=== PATIENT | male | born 1955 | race Caucasian/White ===

== ENCOUNTER 2020-01-08 14:03 | Outpatient (REF) | payer OTHER, SELFPAY ==
[2020-01-08 15:03] LABS: Abs Immature Grans 0.02 k/cumm (0.0-0.09); Absolute Basophil Count 0.01 k/cumm (0.0-0.2); Absolute Eosinophil Count 0.04 k/cumm (0.0-0.7); Absolute Lymphocyte Count 2.84 k/cumm (1.2-3.4); Absolute Neutrophil Count 2.52 k/cumm (1.2-6.7); Basophils % 0.2; Eosinophils % 0.6; HCT 42.2 % (40.0-50.0); HGB 14.7 g/dL (13.5-17.5); Immature Grans % 0.3 %; Lymphocytes % 44.9; Mean Corp. HGB Concentration 34.8 g/dL (32.0-36.0); Mean Corpuscular Hemoglobin 32.7 pg (27.0-33.0); Mean Corpuscular Volume 93.8 fL (80-95); Mean Platelet Volume 12.1 fL (8.0-11.0); Monocytes % 14.2; Neutrophils % 39.8; Platelet Count 127 x1000/uL (130-400); RBC Distribution Width 13.6 % (11.8-14.1); White Blood Cell Count 6.33 k/cumm (4.4-10.8)
[2020-01-08 15:24] LABS: Anion Gap 6.1 mmol/L (3-11); BUN 13 mg/dL (7-18); CO2 29.9 mmol/L (21.0-32.0); CREATININE 0.86 mg/dL (0.70-1.30); Calcium 9.5 mg/dL (8.5-10.1); Chloride 102 mmol/L (98-107); Glucose 77 mg/dL (74-106); Potassium 4.2 mmol/L (3.5-5.1); Sodium 138 mmol/L (136-145); TSH 0.76 uIU/mL (0.36-3.74)
== END 2020-01-08 14:23 ==
LOC: LBN 14:03
PROVIDERS: Visit Provider Internal Medicine
DX: I10 Essential (primary) hypertension (principal); J44.9 Chronic obstructive pulmonary disease, unspecified; E66.9 Obesity, unspecified
CPT/HCPCS: 80048; 84443; 85025

== ENCOUNTER 2020-03-20 10:34 | Emergency (ER) | payer OTHER, SELFPAY ==
[2020-03-20] VITALS (31 sets, daily range): BP systolic 100–158; BP diastolic 57–115; PULSE 74–126; RESP 15–28; TEMP 36.8; O2SAT 79–97
--- NOTE | 2020-03-20 10:15 | RT.EKG_ITS ---
APPROVED REPORT Exam: Resting ECG Patient Location: E HR:100 bpm ECG Measurements Heart Rate 100 AXIS WA 181 P 0 QRSd 107 QRS -9 QT 360 T 75 QTc 465 Conclusion Ventricular-paced complexes...other complexes also detected
[2020-03-20] MEDS: Normal Saline 1,000 ML 500 ML IV (10:45)
--- NOTE | 2020-03-20 10:45 | DI.RAD_ITS ---
EXAM: XR PORTABLE CHEST AP CLINICAL HISTORY: lightheaded, s/p pacemaker placement TECHNIQUE: 2D digital imaging was performed. COMPARISON: CR CHEST 2 VIEWS PA,LAT from 10/31/2017 FINDINGS: Exam is limited by poor pulmonary inflation and technique. Multiple leads are seen overlying the abundio st. The heart appears enlarged but is difficult to evaluate due to projection and poor inspiration. A pacemaker is now noted. There is no pneumothorax. There are linear areas of atelectasis bilatera lly. Basilar infiltrates cannot be excluded. No effusions are visible. IMPRESSION: Limited exam. Bibasilar atelectasis.
--- NOTE | 2020-03-20 10:45 | RT.EKG_ITS ---
APPROVED REPORT Exam: Resting ECG Patient Location: E HR:100 bpm ECG Measurements Heart Rate 100 AXIS MD 181 P 0 QRSd 107 QRS -9 QT 360 T 75 QTc 465 Conclusion Ventricular-paced complexes...other complexes also detected
--- NOTE | 2020-03-20 10:49 | W.ED.GENAD ---
Discharge Plan Disposition Patient Disposition: OTHER Condition: Stable Discharge Details Chief Complaint: Dizzy/Sync Clinical Impression: Dehydration, Near syncope Primary Care Provider: Kristen Lainez ED Provider: Luther Lafleur Home Meds and New Rx's Prescriptions: No Action lisinopril 40 MG tablet 80 mg PO DAILY RF: 0 albuterol sulfate [ProAir HFA] 8.5 GM HFA aerosol inhaler 1 inhaler Inhalation QID RF: 0 atorvastatin [Lipitor] 10 MG tablet 10 mg PO HS RF: 0 bisacodyl 5 MG tablet,delayed release (DR/EC) 5 mg PO HS RF: 0 ergocalciferol (vitamin D2) [Vitamin D2] 50,000 UNITS capsule 50,000 unit PO .WEEKLY RF: 0 ibuprofen 600 MG tablet 600 mg PO QID RF: 0 metoprolol tartrate 12.5 MG tablet 12.5 mg PO BID RF: 0 nicotine 21 mg/24 hr Patch 24 Hour 1 patch TRANSDERMAL DAILY RF: 0 haloperidol decanoate 50 mg/mL solution 100 mg IM Q24W RF: 0 Medical Decision Making 64-year-old male discharged from [facility] yesterday for pacemaker placement. States he arrived home and had an evening meal, slept through the night uneventfully and upon awakening felt lightheaded and dizzy it was worse with rising and better with seated position. Upon arrival he does have approximately 20 beat change to his heart rate with positioning from lying to flat. His blood pressures proxy 106/68 and he is afebrile. Differential diagnosis includes dehydration, anemia, must exclude displaced pacemaker lead. 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 Patient is not anemic with a white count of 9, hematocrit 46, platelets 115. Chemistries with BUN 34, creatinine 1.2, magnesium 1.7, troponin negative. In January renal function was BUN 13, creatinine 0.8. I working hypothesis is that the patient's tachydysrhythmia and subjective complaints of near syncope are due to dehydration, but unable to interrogate his new pacer. Does appear at times that he has ventricular pacing at higher rates around 100. I did perform a bedside [id number] ultrasound that does not show large pericardial effusion but is limited by the patient's body habitus. Case discussed with on-call physician at the [facility] Dr. Bear, who accepts the patient in transfer. HPI General Mode of arrival: EMS. Date/Time Provider Initiated Documentation: 03/20/20 10:38. Limitations to Documentation: no limitations. Information obtained by: patient and EMS. History of Present Illness 64 year old M presents to the emergency department with the chief complaint of Lightheaded and felt like going to pass out, described as moderate, and is localized to the head. Patient reports no radiation. Patient started experiencing this hour(s) and it has been intermittent. Rest improves symptom(s), Other factors that worsen symptoms (Upright) . Patient notes denies chest pain. Patient did receive the following treatments prior to arrival, none Related Data Home Medications Medication Instructions Recorded Confirmed lisinopril 80 mg PO DAILY 02/27/13 03/20/20 albuterol sulfate [ProAir HFA] 1 inhaler INHALATION QID 10/09/13 03/20/20 atorvastatin [Lipitor] 10 mg PO HS 09/21/17 03/20/20 bisacodyl 5 mg PO HS 09/21/17 03/20/20 ergocalciferol (vitamin D2) 50,000 unit PO .WEEKLY 09/21/17 03/20/20 [Vitamin D2] ibuprofen 600 mg PO QID 09/21/17 03/20/20 metoprolol tartrate 12.5 mg PO BID 09/21/17 03/20/20 haloperidol decanoate 100 mg IM Q24W 03/20/20 03/20/20 nicotine 1 patch TRANSDERMAL DAILY 03/20/20 03/20/20 Allergies Allergy/AdvReac Type Severity Reaction Status Date / Time codeine Allergy Itching Unverified 03/20/20 10:40 tramadol HCl [From Ultram] AdvReac Severe Agitation Unverified 03/20/20 10:40 General Stated Complaint: Dizzy/Sync RYLAN: 2 Review of Systems Narrative: No headache, no fall, no chest pain or palpitations. Did not pass out. Discharged from [facility] yesterday status post pacemaker placement. [facility] Social History Smoking/Tobacco Use Status: Current-Occasional Alcohol Intake: former Drug use: Daily Substance use type: marijuana Do you feel safe at home: Yes Do you feel safe in your relationship?: Yes Exam Narrative Exam Narrative: GEN: awake, alert, oriented 3. Pleasant, well groomed, interactive. HEAD: Normocephalic, atraumatic ENT: Mucous membranes dry, oropharynx unremarkable note of poor dentition, External ear exam unremarkable EYES: PERRL, EOMI NECK: Full ROM, no OSVALDO, no menigismus CHEST/RESP: Left upper chest pacemaker pocket dressed, slightly tender and slightly swollen on palpation, clear to auscultation bilateral, no wheeze/rhonchi/rales CARDIOVASCULAR: Distant, regular. 1+ Rad pulse bilateral ABDOMEN: Soft, nontender, no mass. +Bowel sounds EXT: Full ROM, trace pretibial edema, no rash Neuro: Grossly normal neurologic exam, conversant, interactive. Psych: Speech fluent, thoughts congruent, affect normal Course Vital Signs Vital signs: Vital Signs Temperature 36.8 C 03/20/20 10:31 Pulse 114 H 03/20/20 10:31 Respiratory Rate 15 03/20/20 10:31 Blood Pressure 106/68 03/20/20 10:31 Pulse Oximetry 90 L 03/20/20 10:31 Temperature 36.8 C 03/20/20 10:31 Temperature Source Skin 03/20/20 10:31 Pulse 114 H 03/20/20 10:31 Respiratory Rate 15 03/20/20 10:31 Blood Pressure 106/68 03/20/20 10:31 Blood Pressure Position Sitting 03/20/20 10:31 Pulse Oximetry 90 L 03/20/20 10:31 Oxygen Delivery Method Room Air 03/20/20 10:31 Oxygen Flow Rate 0 03/20/20 10:31 Pain Level 8 03/20/20 10:31 Comment 03/20/20 10:31
[2020-03-20 11:02] LABS: Abs Immature Grans 0.04 10^3/uL (0.0-0.06); Absolute Basophil Count 0.03 10^3/uL (0.0-0.2); Absolute Eosinophil Count 0.04 10^3/uL (0.0-0.7); Absolute Lymphocyte Count 1.79 10^3/uL (1.2-3.4); Absolute Monocyte Count 1.32 10^3/uL (0.1-0.8); Absolute Neutrophil Count 6.58 10^3/uL (1.2-6.7); Basophils % 0.3; Eosinophils % 0.4; HGB 15.8 g/dL (13.5-17.5); Immature Grans % 0.4; Lymphocytes % 18.3; MCH 32.4 pg (27.0-33.0); MCHC 34.3 % (32.0-36.0); MCV 94.5 fL (80-95); MPV 12.6 fL (8.0-11.0); Monocytes % 13.5; Neutrophils % 67.1; Nucleated RBC 0 %; Platelet Count 115 10^3/uL (130-400); RBC 4.87 10^6/uL (4.36-5.78); RDW 12.4 % (11.8-14.1); RDW-SD 43.1 fL
[2020-03-20 11:16] LABS: INR 1.1 (0.9-1.1); PTT Activated 26.1 sec (21.0-31.4); Prothrombin Time 10.9 sec (9.3-11.0)
[2020-03-20] MEDS: Nicotine 21 MG/24 HR PATCH TD (11:25)
[2020-03-20 11:26] LABS: ALT 21 U/L (16-63); AST 20 U/L (15-37); Albumin 3.9 g/dL (3.4-5.0); Alkaline Phosphatase 75 U/L (46-116); Anion Gap 10.4 mmol/L (3-11); BUN 34 mg/dL (7-18); Bilirubin, Total 1.1 mg/dL (0.2-1.0); CO2 23.6 mmol/L (21.0-32.0); CREATININE 1.22 mg/dL (0.70-1.30); Calcium 9.5 mg/dL (8.5-10.1); Chloride 102 mmol/L (98-107); Estimated GFR 59.99 (mL/min/1.73m2); Glucose 137 mg/dL (74-106); Magnesium 1.7 mg/dL (1.8-2.4); Potassium 4.7 mmol/L (3.5-5.1); Sodium 136 mmol/L (136-145); Total Protein 7.5 g/dL (6.4-8.2)
[2020-03-20 11:28] LABS: Troponin I < 0.05 ng/mL (<0.06)
[2020-03-20] MEDS: MAGNESIUM SULFATE 1 GM/100 ML BAG IVPB (11:41)
--- NOTE | 2020-03-20 11:43 | DI.VRAD_ITS ---
PROCEDURE INFORMATION: Exam: XR Chest, 1 View Exam date and time: 03/20/2020 10:49 AM Age: 64 years old Clinical indication: Other: Lightheaded S/P pacemaker; Prior surgery; Surgery date: Post-operative (0-2 days) TECHNIQUE: Imaging protocol: XR of the chest Views: 1 view. COMPARISON: CR CHEST 2 VIEWS PA,LAT 10/31/2017 9:01 AM FINDINGS: Tubes, catheters and devices: Cardiac device with the battery pack on the left is new. Lungs: Interstitial markings are more pronounced. I favor some scarring or atelectatic changes in the lung bases. No dense consolidation Pleural space: No effusion or pneumothorax. Heart/Mediastinum: Heart size is borderline. The mediastinum is not widened. Diaphragm: Eventration of the right hemidiaphragm. Bones/joints: Unremarkable. Other findings: Linear artifact over the left thorax. IMPRESSION: Borderline heart size with mildly prominent interstitial markings. Two-view chest follow-up is recommended. Dictated and Authenticated by: Jan Marx MD. Ordering:EMI Sloan MD
--- NOTE | 2020-03-20 12:30 | RT.EKG_ITS ---
APPROVED REPORT Exam: Resting ECG Patient Location: E HR:121 bpm ECG Measurements Heart Rate 121 AXIS IL [id number] P 87 QRSd 99 QRS -15 QT 355 T 77 QTc 505 Conclusion Ventricular-paced complexes...other complexes also detected Prolonged QT interval...QTc >500mS
== END 2020-03-20 13:34 | disposition other institution (70) ==
PROVIDERS: Emergency Provider Emergency Medicine; PCP Nurse Practitioner Primary Care
DX: E86.0 Dehydration (principal); R55 Syncope and collapse; Z95.0 Presence of cardiac pacemaker; Y83.1 Surgical operation with implant of artificial internal device as the cause of abnormal reaction of the patient, or of later complication, without mention of misadventure at the time of the procedure
CPT/HCPCS: 36415; 80053; 93005; 96361; 96365; 99285; 71045; 83735; 84484; 85025; 85610; 85730; 93010; J3475

== ENCOUNTER 2020-03-26 10:33 | Inpatient (IN) | payer OTHER, SELFPAY ==
[2020-03-26] VITALS (48 sets, daily range): BP systolic 88–122; BP diastolic 51–85; PULSE 52–67; RESP 6–33; TEMP 36–36.6; O2SAT 95–100
--- NOTE | 2020-03-26 10:30 | DI.RAD_ITS ---
EXAM: XR CHEST 1V IN DI DEPT CLINICAL HISTORY: slurred speech, stroke TECHNIQUE: 2D digital imaging was performed. COMPARISON: CR CHEST 2 VIEWS PA,LAT from 10/31/2017 CR,XR XR PORTABLE CHEST AP from 03/20/2020 FINDINGS: The lungs are poorly inflated. The heart is enlarged. The aorta is tortuous. A pacemaker is noted. There are linear densities bilaterally consistent with scarring and atelectasis. No areas consolid ation or pulmonary edema is seen. There is no evidence of pneumothorax.. IMPRESSION: No acute pulmonary findings. DATA REPOSITORY: RADIATION DOSE DELIVERED:
--- NOTE | 2020-03-26 10:45 | RT.EKG_ITS ---
APPROVED REPORT Exam: Resting ECG Patient Location: E HR:54 bpm ECG Measurements Heart Rate 54 AXIS PA 175 P 55 QRSd 122 QRS -9 QT 428 T 22 QTc 406 Conclusion Sinus bradycardia...rate< 60 Nonspecific intraventricular conduction delay...QRSd >115mS, not LBBB/RBBB Borderline ST elevation, lateral leads...ST >0.06mV, I aVL V5 V6 NO PACER SPIKES Nondiagnostic
--- NOTE | 2020-03-26 10:46 | DI.CT_ITS ---
EXAM: CT HEAD - STROKE PROTOCOL CLINICAL HISTORY: altered, slurred speech. TECHNIQUE: Imaging Protocol: Axial computed tomography images with coronal and sagittal reformatted images were created and reviewed COMPARISON: CT CHEST ABD PELVIS WITH CONTRAST from 02/28/2013 FINDINGS: Ventricles and Extra axial spaces: Normal in size and morphology for the patient's age. Hemorrhage: None. Cerebral parenchyma: Normal. Midline shift: None. Brainstem/Cerebellum: Normal. Calvarium: Normal. Visualized Paranasal sinuses/Mastoids: Small mucous retention cyst or polyp at the floor of the right maxillary sinus. Sinuses and mastoid air cells otherwise clear. Soft Tissues: Unremarkable. IMPRESSION: No acute intracranial process. RADIATION DOSE DELIVERED: 904.98mGy.cm Total DLP DATA REPOSITORY: All CT scans at this facility are submitted to the National Radiology Data Registry (NRDR) Dose Index Registry (DIR) with the [employer] (ACR). RADIATION OPTIMIZATION: All CT scans at this facility use at least one of these dose optimization te chniques: automated exposure control; mA and/or kV adjustment per patient size (includes targeted exa ms where dose is matched to clinical indication); or iterative reconstruction.
[2020-03-26] MEDS: Normal Saline Flush 10 ML SYR IVP ×2 (11:24→17:28)
--- NOTE | 2020-03-26 11:25 | ED.GENADUL_ITS ---
Discharge Plan Disposition Condition: Improving Discharge Details Chief Complaint: CVA/TIA Admit Date/Time: 03/26/20 15:11 Admit Provider: Jan Man Attending Provider: Jan Man Primary Care Provider: Kristen Lainez ED Provider: Darell Stephen Discharge Instructions Activity:: Activity as Tolerated Equipment/Supplies:: No Equipment Needed Diet:: heart healthy Discharge Orders Discharge Orders: Discharge Order (Routine); Ordered 03/29/20 Ordered By: Otilia Portillo Discharge Data Discharge Date/Time-TO BE ENTERED AT DEPARTURE: 03/26/20 16:09 Medical Decision Making 1135??64-year-old male who presents 1 week status post pacemaker placement, here with general fatigue, generalized weakness, slurred speech after taking his morning medications. No focal neurologic deficits appreciated on exam other than slurred speech and difficulty tracking on rightward gaze. Concern for CVA versus more likely medication reaction. CT of the head was interpreted by radiology: Negative. Plan to proceed to MRI. Screening ECG was reviewed and interpreted by me: Please see report, sinus bradycardia 54 bpm, I do not appreciate any pacer spikes, no STEMI 1208 --patient unable to have MRI secondary to pacemaker. Plan to proceed to CTA of the head and neck. Labs reviewed and urinalysis concerning for UTI, mild leukocytosis noted. Plan to start cefepime 1 g IV. Of note mild hyperkalemia with potassium is 5.5. Patient did not have peaked T's or bradycardia on 03/20. I will treat for cardiac effects of hyperkalemia with sodium bicarbonate and calcium gluconate and insulin/D50. Patient hypotensive. We will give normal saline 500 mL bolus. 1340 --CTA interpreted by radiology mild stenosis carotids, otherwise negative . Patient reassessed continues to have slurred speech and unchanged neurologic exam. Plan to admit for observation. HPI General Mode of arrival: ambulatory . Date/Time Provider Initiated Documentation: 03/26/20 10:33 . Limitations to Documentation: no limitations . Information obtained by: patient . HPI Narrative: 64-year-old male with history of hypertension, bipolar disorder, schizophrenia, anxiety disorder, recent pacemaker placement 1 week ago, here today by EMS with slurred speech and concern for CVA. Patient notes he woke up this morning and was feeling generally well he took his medications sometime around 7:30 in the morning and about 1/2-hour to an hour later he noticed that he felt generally weak, fatigued and then developed slurred speech. Patient denies any focal numbness or focal weakness but feels weak all over. He denies headache. No recent fever. Of note, patient did recently travel out of state to an area of high COVID-19 risk in [place] for his pacemaker placement. Related Data Home Medications Medication Instructions Recorded Confirmed atorvastatin [Lipitor] 10 mg PO HS 09/21/17 03/26/20 bisacodyl 5 mg PO HS 09/21/17 03/26/20 ibuprofen 600 mg PO QID 09/21/17 03/26/20 metoprolol tartrate 12.5 mg PO BID 09/21/17 03/26/20 nicotine 1 patch TRANSDERMAL DAILY 03/20/20 03/26/20 calcifediol 25 mcg PO DAILY 03/26/20 03/26/20 haloperidol decanoate 150 mg IM Q4W PRN 03/26/20 03/26/20 pregabalin [Lyrica] 200 mg PO BID 03/26/20 03/26/20 tamsulosin 0.8 mg PO DAILY 03/26/20 03/26/20 acetaminophen [Tylenol] 650 mg PO Q4H PRN PRN #0 tab 03/29/20 levofloxacin [Levaquin] 750 mg PO QAM #2 tab 03/29/20 lisinopril 40 mg PO DAILY #0 tab 03/29/20 03/26/20 Previous Rx's Medication Instructions Recorded acetaminophen [Tylenol] 650 mg PO Q4H PRN PRN #0 tab 03/29/20 levofloxacin [Levaquin] 750 mg PO QAM #2 tab 03/29/20 lisinopril 40 mg PO DAILY #0 tab 03/29/20 Allergies Allergy/AdvReac Type Severity Reaction Status Date / Time cefepime Allergy Mild Urticaria Verified 03/27/20 10:24 ceftriaxone Allergy Mild urticaria Verified 03/27/20 10:24 codeine Allergy Itching Unverified 03/26/20 14:41 tramadol HCl [From Ultram] AdvReac Severe Agitation Unverified 03/26/20 14:41 General Stated Complaint: CVA/TIA RYLAN: 2 Review of Systems All systems reviewed & are unremarkable except as noted in HPI and below Constitutional Constitutional: Denies fever(s) Cardiovascular Cardiovascular: Denies chest pain and Denies dyspnea Respiratory Respiratory: Denies dyspnea Gastrointestinal Gastrointestinal: Denies abdominal pain Neurologic Neurologic: Reports as per HPI [facility] Medical History Bipolar 1 disorder (Chronic) Near syncope (Acute) Pacemaker (Acute) Pneumonitis (Acute) Schizophrenia (Chronic) UTI (urinary tract infection) (Acute) Social History Smoking/Tobacco Use Status: Current-Occasional Alcohol Intake: former Drug use: Daily Substance use type: marijuana Do you feel safe at home: Yes Do you feel safe in your relationship?: Yes Exam Const General: cooperative and no acute distress HENMT Head: normocephalic and atraumatic Mouth: moist mucous membranes Eyes Conjunctivae: normal conjunctivae Sclera: normal sclerae Other: Difficulty with rightward gaze Neck Neck: trachea midline and supple Resp Auscultation: clear to auscultation bilaterally, no rales, no rhonchi and no wheezes Cardio Jugular venous pressure: no JVD Rate: regular rate and not tachycardic Rhythm: regular rhythm GI Palpation: soft, not firm, no guarding, no masses, not rigid and nontender Skin General skin exam: no rashes or lesions noted Neuro General: patient alert, patient awake, patient oriented x3 and tone normal Cranial Nerves: PERRL, accommodation abnormal (Right eye does not accommodate well), facial strength normal, tongue midline and able to elevate shoulders jung aterally Cognition: normal cognition Speech: abnormal speech slurred Motor: other (Strength 4 out of 5 throughout) Sensory Exam: no sensory deficits noted Extrem General: no edema Psych Appearance: grossly normal Mental Status: mental status grossly normal Course Vital Signs Vital signs: Vital Signs Temperature 36.0 C L 03/26/20 10:33 Pulse 59 L 03/26/20 10:33 Respiratory Rate 26 H 03/26/20 10:33 Blood Pressure 108/67 03/26/20 10:33 Pulse Oximetry 98 03/26/20 10:33 Temperature 36.0 C L 03/26/20 10:33 Temperature Source Skin 03/26/20 10:33 Pulse 59 L 03/26/20 10:33 Respiratory Rate 26 H 03/26/20 10:33 Blood Pressure 108/67 03/26/20 10:33 Pulse Oximetry 98 03/26/20 10:33 Oxygen Delivery Method Nasal Cannula 03/26/20 10:33 Oxygen Flow Rate 4 03/26/20 10:33 Pain Level 8 03/26/20 10:33 Comment 03/26/20 10:33
[2020-03-26 11:29] LABS: Abs Immature Grans 0.05 10^3/uL (0.0-0.06); Absolute Neutrophil Count 8.59 10^3/uL (1.2-6.7); Basophils % 0.3; Eosinophils % 0.3; HCT 43.3 % (40.0-50.0); HGB 14.9 g/dL (13.5-17.5); Immature Grans % 0.4; Lymphocytes % 12.7; MCH 32.4 pg (27.0-33.0); MCHC 34.4 % (32.0-36.0); MCV 94.1 fL (80-95); Monocytes % 12.8; Neutrophils % 73.5; Nucleated RBC 0 %; Platelet Count 110 10^3/uL (130-400); RDW 12.1 % (11.8-14.1); WBC 11.69 10^3/uL (4.4-10.8)
[2020-03-26 11:38] LABS: Bilirubin Negative (Negative); Blood Trace-intact (Negative); Clarity Sl Cloudy (Clear); Glucose Negative (Negative); Ketones Negative (Negative); Leukocyte Esterase Moderate (Negative); Nitrite Positive (Negative)
[2020-03-26 11:38] LABS: Absolute Basophil Count 0.04 10^3/uL (0.0-0.2); Absolute Eosinophil Count 0.04 10^3/uL (0.0-0.7); Absolute Lymphocyte Count 1.48 10^3/uL (1.2-3.4)
[2020-03-26 11:49] LABS: ALT 29 U/L (16-63); AST 23 U/L (15-37); Alkaline Phosphatase 83 U/L (46-116); Anion Gap 8.7 mmol/L (3-11); BUN 40 mg/dL (7-18); Bilirubin, Total 0.9 mg/dL (0.2-1.0); CO2 26.3 mmol/L (21.0-32.0); CREATININE 1.09 mg/dL (0.70-1.30); Calcium 9.7 mg/dL (8.5-10.1); Chloride 98 mmol/L (98-107); Glucose 108 mg/dL (74-106); Potassium 5.5 mmol/L (3.5-5.1); Sodium 133 mmol/L (136-145); Total Protein 7.3 g/dL (6.4-8.2)
[2020-03-26 11:50] LABS: Troponin I < 0.05 ng/mL (<0.06)
[2020-03-26 11:58] LABS: Bacteria Many HPF (Negative); C & S Indicated? Yes; Casts 0-2 Coarse Granular LPF (Negative); Crystals Negative HPF (Negative); Epithelial Cells Negative HPF (Negative); Mucus Negative (Negative); Other Cells Rare Renal (Negative); RBC 20-50 HPF (0-2); WBC >50 HPF (0-5)
--- NOTE | 2020-03-26 12:00 | DI.CT_ITS ---
EXAM: CT BRAIN NECK CTA CLINICAL HISTORY: slurred speech. TECHNIQUE: Imaging Protocol: Axial CT angiography was performed with multi-slice acquisition and mu lti-planar and/or 3D reconstructions. CONTRAST MATERIAL: Intravenous: Omnipaque 350 Contrast volume:100 cc COMPARISON: CT CHEST ABD PELVIS WITH CONTRAST from 06/03/2015 FINDINGS: CTA Brain W: Internal Carotid Arteries: Petrous: Normal. Cavernous: Normal. Cerebral: Normal. Middle Cerebral Arteries: Right: No aneurysm, occlusion or significant stenosis. Left: No aneurysm, occlusion or significant stenosis. Anterior Cerebral Arteries: Right: No aneurysm, occlusion or significant stenosis. Left: No aneurysm, occlusion or significant stenosis. Posterior cerebral Arteries: Right: No aneurysm, occlusion or significant stenosis. Left: No aneurysm, occlusion or significant stenosis. Vertebral Arteries: Right: No aneurysm, occlusion or significant stenosis. Left: No aneurysm, occlusion or significant stenosis. Basilar Artery: No aneurysm, occlusion or significant stenosis. CTA Neck W: Common Carotid: Right: No aneurysm, occlusion or significant stenosis. Proximal tortuosity.No evidence of dissection . Left: No aneurysm, occlusion or significant stenosis. No evidence of dissection. Calcific plaque at both common carotid bulbs. External Carotid: Right: No aneurysm, occlusion or significant stenosis. Left: No aneurysm, occlusion or significant stenosis. Internal Carotid: Right: No aneurysm, occlusion or significant stenosis. No evidence of dissection.Calcific plaque cau sing mild stenosis. Left: No aneurysm, occlusion or significant stenosis. Calcific plaque causing mild stenosis.No evide nce of dissection. Vertebral Artery: Right: No aneurysm, occlusion or significant stenosis. No evidence of dissection. Left: No aneurysm, occlusion or significant stenosis. No evidence of dissection. Lung Apices: Emphysematous changes. Bones: Degenerative changes in the spine Soft Tissues: Normal. IMPRESSION: 1. Normal CTA examination of the [place]. 2. Calcific plaque in the common carotid bulbs and proximal internal carotid arteries cause mild, les s than 50 percent stenosis. RADIATION DOSE DELIVERED: 350.07mGy.cm Total DLP DATA REPOSITORY: All CT scans at this facility are submitted to the National Radiology Data Registry (NRDR) Dose Index Registry (DIR) with the [employer] (ACR). RADIATION OPTIMIZATION: All CT scans at this facility use at least one of these dose optimization te chniques: automated exposure control; mA and/or kV adjustment per patient size (includes targeted exa ms where dose is matched to clinical indication); or iterative reconstruction.
[2020-03-26] MEDS: Normal Saline 500 ML IV (12:05)
[2020-03-26] MEDS: Sodium Bicarbonate 50 MEQ/50 ML SYR IVP (12:45)
[2020-03-26] MEDS: Dextrose 50%-Water 25 GM/50 ML SYR IVP (12:48)
[2020-03-26] MEDS: Insulin REGULAR-Human 100 UNITS/ML UNIT 10 UNITS SC (12:51)
[2020-03-26] MEDS: Normal Saline - Diluent 50 ML VIAL IV (13:07)
[2020-03-26] MEDS: Omnipaque 350 MG/ML 100 ML BTL IJ (13:07)
--- NOTE | 2020-03-26 13:30 | RT.EKG_ITS ---
APPROVED REPORT Exam: Resting ECG Patient Location: E HR:65 bpm ECG Measurements Heart Rate 65 AXIS MI 184 P 57 QRSd 127 QRS -7 QT 424 T 28 QTc 441 Conclusion Sinus rhythm...normal P axis, V-rate 60- 99 Nonspecific intraventricular conduction delay...QRSd >115mS, not LBBB/RBBB
[2020-03-26] MEDS: CEFEPIME 1 GM in Normal Saline 50 ML IVPB (13:36)
[2020-03-26 14:25] LABS: Troponin I < 0.05 ng/mL (<0.06)
--- NOTE | 2020-03-26 15:17 | HPE_ITS ---
Date of service: 03/26/20 Time of Service: 15:18 Assessment and Plan Assessment and plan (1) Hyperkalemia: Status: Acute Assessment and plan: Repeat BMP now. (2) UTI (urinary tract infection): Status: Acute Assessment and plan: No previous UTI Single dose of cefepime given in ED Begin Rocephin 1 gram Q24H Cx in progress. (3) Bipolar 1 disorder: Status: Acute Assessment and plan: Behavior normal No current psych meds other than depo haldol Q4W (4) Schizophrenia: Status: Chronic Assessment and plan: Haloperidol deconoate 150mg IM Q4W. (5) Slurred speech: Status: Acute Assessment and plan: Normal head CT and CTA head/neck Unclear of baseline speech pattern. Monitor for other clinical signs of neurologic impairment. History of Present Illness History of Present Illness Chief Complaint: slurred speech and generalize weakness Narrative: This is a 64 yo male with a h/o HTN, anxiety disorder, schizophrenia, bipolar disorder, 1 week s/p pacemaker. He presented with generalized fatigue and weakness as well as slurred speech after taking his morning meds. CT head was negative for acute findings. MRI could not be performed d/t presence of his pacemaker. CTA head/neck with normal [place]. Mild, less than 50% stenosis d/t plaque in the common carotid bulbs and proximal internal carotid arteries. His K was elevated at 5.5; this was addressed with sodium bicarbonate, calcium gluconate and insulin and D50. He did have peaked T-waves that were not seen on previous EKG. No pacer spikes were appreciated. + sinus bradycardia of 54. His SBP did decrease into the 80's and a 500ml bolus of NS was administered. His SBP improved to the 110's. His bradycardia resolved. His urine was positive and a dose of Cefepime was given. He endorses chronic hip/groin pain. No dysuria, frequency,h/o UTIs. Uses a condom catheter d/t urinary incontinence. No recent indwelling awad catheter. No CP, palpitations. Review of Systems All systems reviewed & are unremarkable except as noted in HPI and below PFSH Medical History Pacemaker (Acute) Social History Smoking/Tobacco Use Status: Current-Occasional Alcohol Intake: former Drug use: Daily Substance use type: marijuana Do you feel safe at home: Yes Do you feel safe in your relationship?: Yes Meds Home Medications and Allergies Home Medications Medication Instructions Recorded Confirmed Type lisinopril 80 mg PO DAILY 02/27/13 03/26/20 History atorvastatin [Lipitor] 10 mg PO HS 09/21/17 03/26/20 History bisacodyl 5 mg PO HS 09/21/17 03/26/20 History ibuprofen 600 mg PO QID 09/21/17 03/26/20 History metoprolol tartrate 12.5 mg PO BID 09/21/17 03/26/20 History nicotine 1 patch TRANSDERMAL DAILY 03/20/20 03/26/20 History calcifediol 25 mcg PO DAILY 03/26/20 03/26/20 History haloperidol decanoate 150 mg IM Q4W PRN 03/26/20 03/26/20 History pregabalin [Lyrica] 200 mg PO BID 03/26/20 03/26/20 History tamsulosin 0.8 mg PO DAILY 03/26/20 03/26/20 History Allergies Allergy/AdvReac Type Severity Reaction Status Date / Time codeine Allergy Itching Unverified 03/26/20 14:41 tramadol HCl [From Ultram] AdvReac Severe Agitation Unverified 03/26/20 14:41 Exam Const General: cooperative and no acute distress Nutritional Appearance: obese Orientation: alert and oriented x3 HENMT Head: normal to inspection and atraumatic Eyes General: appearance normal, both eyes and all related structures Sclera: sclerae normal Neck Neck: full ROM and no JVD Resp Effort & Inspection: normal respiratory effort Auscultation: clear to auscultation bilaterally Cardio Rate: regular rate (60) Rhythm: regular rhythm Heart Sounds: S1 normal and S2 normal GI Inspection: obesity Palpation: soft Percussion: normal to percussion Auscultation: normal bowel sounds Skin General skin exam: no rashes or lesions noted Trauma: no lacerations or abrasions Extrem General: no pedal edema and no calf tenderness Psych Appearance: grossly normal Speech and Movement: slurred speech (mild) Mood: congruent mood Affect: normal affect Attitude: cooperative Thought Content: normal Results Labs Result diagrams: 03/26/20 11:15 03/26/20 11:15 Labs: Laboratory Results - last 24 hr 03/26/20 03/26/20 03/26/20 11:15 11:15 11:30 WBC 11.69 H RBC 4.60 Hgb 14.9 Hct 43.3 MCV 94.1 MCH 32.4 MCHC 34.4 RDW 12.1 Plt Count 110 L MPV 13.0 H Immature Gran % 0.4 Neutrophils % 73.5 Lymphocytes % 12.7 Monocytes % 12.8 Eosinophils % 0.3 Basophils % 0.3 Nucleated RBC % 0 Absolute Neutrophils 8.59 H Absolute Lymphocytes 1.48 Absolute Monocytes 1.50 H Absolute Eosinophils 0.04 Absolute Basophils 0.04 Sodium 133 L Potassium 5.5 H Chloride 98 Carbon Dioxide 26.3 Anion Gap 8.7 BUN 40 H Creatinine 1.09 Estimated GFR/1.73 m2 >= 60.00 Glucose 108 H Calcium 9.7 Total Bilirubin 0.9 AST 23 ALT 29 Alkaline Phosphatase 83 Troponin I < 0.05 Total Protein 7.3 Albumin 4.0 Urine Color Yellow Urine Clarity Sl cloudy Urine pH 6.0 Ur Specific [place] 1.020 Urine Protein Negative Urine Ketones Negative Urine Blood Trace-intact H Urine Nitrite Positive H Urine Bilirubin Negative Urine Urobilinogen 1.0 H Ur Leukocyte Esterase Moderate H Urine RBC 20-50 H Urine WBC >50 H Ur Epithelial Cells Negative Urine Crystals Negative Urine Bacteria Many Urine Casts 0-2 coarse granular Urine Mucus Negative Urine Other Rare renal Ur Culture Indicated? Yes Urine Glucose Negative 03/26/20 13:53 WBC RBC Hgb Hct MCV MCH MCHC RDW Plt Count MPV Immature Gran % Neutrophils % Lymphocytes % Monocytes % Eosinophils % Basophils % Nucleated RBC % Absolute Neutrophils Absolute Lymphocytes Absolute Monocytes Absolute Eosinophils Absolute Basophils Sodium Potassium Chloride Carbon Dioxide Anion Gap BUN Creatinine Estimated GFR/1.73 m2 Glucose Calcium Total Bilirubin AST ALT Alkaline Phosphatase Troponin I < 0.05 Total Protein Albumin Urine Color Urine Clarity Urine pH Ur Specific [place] Urine Protein Urine Ketones Urine Blood Urine Nitrite Urine Bilirubin Urine Urobilinogen Ur Leukocyte Esterase Urine RBC Urine WBC Ur Epithelial Cells Urine Crystals Urine Bacteria Urine Casts Urine Mucus Urine Other Ur Culture Indicated? Urine Glucose Last Vital Signs Temp 36.0 C L 03/26/20 10:33 Pulse 62 03/26/20 14:16 Resp 17 03/26/20 14:20 BP 109/72 03/26/20 14:16 Pulse Ox 97 03/26/20 14:20 COVID-19 Screening Have you,or household,traveled outside [place] in last 14 days?: Yes Had IN PERSON contact w/suspected or confirmed C-19 person: No
[2020-03-26] MEDS: Normal Saline 1,000 ML 80 ML IV (17:00)
[2020-03-26] MEDS: Enoxaparin 40 MG/0.4 ML SYR SC (17:28)
[2020-03-26 17:42] LABS: Anion Gap 5.1 mmol/L (3-11); CO2 30.9 mmol/L (21.0-32.0); CREATININE 0.89 mg/dL (0.70-1.30); Calcium 9.2 mg/dL (8.5-10.1); Chloride 102 mmol/L (98-107); Glucose 82 mg/dL (74-106); Potassium 4.6 mmol/L (3.5-5.1); Sodium 138 mmol/L (136-145)
[2020-03-26 17:52] LABS: BUN 30 mg/dL (7-18)
[2020-03-26] MEDS: Nicotine 21 MG/24 HR PATCH TD (18:28)
[2020-03-26] MEDS: Pregabalin 100 MG CAP 200 MG PO (20:44)
[2020-03-26] MEDS: cefTRIAXone 1 GM/50 ML BAG IVPB (20:47)
[2020-03-26] MEDS: Bisacodyl 5 MG TABEC PO (21:33)
[2020-03-26] MEDS: Magnesium Oxide 400 MG TAB PO (21:33)
[2020-03-26] MEDS: Atorvastatin 10 MG TAB PO (21:35)
[2020-03-27 05:00] VITALS: BP 135/73; PULSE 60; RESP 16; TEMP 37.2; O2SAT 92
[2020-03-27] MEDS: Normal Saline 1,000 ML 80 ML IV ×2 (06:02→18:18)
[2020-03-27] MEDS: Acetaminophen 325 MG TAB 650 MG PO ×2 (08:00→18:10)
[2020-03-27] MEDS: Tamsulosin 0.4 MG CAPCR 0.8 MG PO (08:00)
[2020-03-27] MEDS: Cholecalciferol (Vitamin D3) 1,000 UNIT TAB 1000 UNITS PO (08:01)
[2020-03-27] MEDS: Pregabalin 100 MG CAP 200 MG PO ×2 (08:01→20:32)
[2020-03-27] MEDS: Nicotine 21 MG/24 HR PATCH TD (08:02)
[2020-03-27 08:10] VITALS: BP 131/73; PULSE 57; RESP 17; TEMP 35.7; O2SAT 95
[2020-03-27 08:45] LABS: Anion Gap 6.6 mmol/L (3-11); BUN 21 mg/dL (7-18); CO2 28.4 mmol/L (21.0-32.0); CREATININE 0.75 mg/dL (0.70-1.30); Calcium 9.3 mg/dL (8.5-10.1); Chloride 102 mmol/L (98-107); Glucose 122 mg/dL (74-106); Magnesium 1.7 mg/dL (1.8-2.4); Potassium 4.5 mmol/L (3.5-5.1); Sodium 137 mmol/L (136-145)
[2020-03-27 08:48] LABS: Abs Immature Grans 0.04 10^3/uL (0.0-0.06); Absolute Basophil Count 0.02 10^3/uL (0.0-0.2); Absolute Eosinophil Count 0.03 10^3/uL (0.0-0.7); Absolute Lymphocyte Count 1.72 10^3/uL (1.2-3.4); Absolute Monocyte Count 1.28 10^3/uL (0.1-0.8); Absolute Neutrophil Count 7.17 10^3/uL (1.2-6.7); Basophils % 0.2; Eosinophils % 0.3; HCT 42.4 % (40.0-50.0); HGB 14.2 g/dL (13.5-17.5); Immature Grans % 0.4; Lymphocytes % 16.8; MCH 31.7 pg (27.0-33.0); MCHC 33.5 % (32.0-36.0); MCV 94.6 fL (80-95); Monocytes % 12.5; Neutrophils % 69.8; Nucleated RBC 0 %; Platelet Count 117 10^3/uL (130-400); RBC 4.48 10^6/uL (4.36-5.78); RDW-SD 42.1 fL; WBC 10.26 10^3/uL (4.4-10.8)
[2020-03-27 09:12] LABS: Hemoglobin A1C 6.1 % (3.8-5.6)
[2020-03-27 09:15] LABS: Calculated LDL 54 mg/dL (<100); Cholesterol 94 mg/dL (<200); HDL Cholesterol 23 mg/dL (40-60); Triglyceride 89 mg/dL (<150)
[2020-03-27] MEDS: diphenhydrAMINE 50 MG/ML VIAL IVP (09:42)
[2020-03-27] MEDS: Normal Saline Flush 10 ML SYR IVP (09:43)
[2020-03-27] MEDS: Famotidine 20 MG/2 ML VIAL IV (09:43)
--- NOTE | 2020-03-27 10:23 | PGE_ITS ---
Date of Service Date of service: 03/27/20 Time of Service: 10:23 Assessment and Plan Assessment and plan (1) Hyperkalemia: Start date: 03/27/20 Start time: 10:28 Status: Resolved Assessment and plan: Potassium level 4.5 (2) UTI (urinary tract infection): Start date: 03/27/20 Start time: 10:30 Status: Acute Assessment and plan: No previous UTI He did appear to have a drug reaction unsure to whether cefepime or ceftriaxone so will add both to allergy list Switch to levaquin urine cx pending, await senstitivities. Given benadryl and pepcid IV. (3) Bipolar 1 disorder: Start date: 03/27/20 Start time: 10:33 Status: Chronic Assessment and plan: Behavior normal No current psych meds other than depo haldol Q4W (4) Schizophrenia: Start date: 03/27/20 Start time: 10:34 Status: Chronic Assessment and plan: Haloperidol deconoate 150mg IM Q4W. Qualifiers: Schizophrenia type: unspecified Qualified Code(s): F20.9 - Schizophrenia, unspecified (5) Slurred speech: Start date: 03/27/20 Start time: 10:34 Status: Acute Assessment and plan: Normal head CT and CTA head/neck Unclear of baseline speech pattern. Monitor for other clinical signs of neurologic impairment. (6) Hypomagnesemia: Start date: 03/27/20 Start time: 10:34 Status: Acute Assessment and plan: Replete mag and monitor. (7) Pacemaker: Start date: 03/27/20 Start time: 10:34 Status: Acute Assessment and plan: S/p 7 days, given weakness and fatigue, will place cardiology consult for pacemaker interrogation. (8) Dehydration: Start date: 03/27/20 Start time: 10:35 Status: Acute Assessment and plan: Improving, continue IV hydration Above case discussed with Dr. Ramirez. Subjective Subjective Patient reports: other Interval history since last seen: Urticaria to bilateral lower extremities, denies SOB, throat swelling, tongue swelling, likely a drug reaction from cefepime or ceftriaxone, unsure which one as he received both, therefore will add both to allergy list. Switch to PO levaquin for UTI coverage. Benadyrl and pepcid IV given for reaction will monitor. Otherwise he states feeling better. Exam Const General: cooperative and no acute distress Nutritional Appearance: obese Orientation: alert and oriented x3 HENMT Head: normal to inspection and atraumatic Eyes General: appearance normal, both eyes and all related structures Sclera: sclerae normal Neck Neck: full ROM and no JVD Resp Effort & Inspection: normal respiratory effort Auscultation: clear to auscultation bilaterally Cardio Rate: regular rate (60) Rhythm: regular rhythm Heart Sounds: S1 normal and S2 normal GI Inspection: obesity Palpation: soft Percussion: normal to percussion Auscultation: normal bowel sounds Skin Rashes: rashes noted (bilateral knees. ) Wounds: no wounds Extrem General: no pedal edema and no calf tenderness Psych Appearance: grossly normal Speech and Movement: slurred speech (mild) Mood: congruent mood Affect: normal affect Attitude: cooperative Thought Content: normal Objective Objective Clinical Data: Abnormal lab results 03/26/20 03/26/20 03/26/20 Range/Units 11:15 11:15 11:30 WBC 11.69 H (4.4-10.8) 10^3/uL Plt Count 110 L (130-400) 10^3/uL MPV 13.0 H (8.0-11.0) fL Absolute Neutrophils 8.59 H (1.2-6.7) 10^3/uL Absolute Monocytes 1.50 H (0.1-0.8) 10^3/uL Sodium 133 L (136-145) mmol/L Potassium 5.5 H (3.5-5.1) mmol/L BUN 40 H (7-18) mg/dL Glucose 108 H (74-106) mg/dL Hemoglobin A1c (3.8-5.6) % Magnesium (1.8-2.4) mg/dL HDL Cholesterol (40-60) mg/dL Urine Blood Trace-intact H (Negative) Urine Nitrite Positive H (Negative) Urine Urobilinogen 1.0 H (Up TO 0.2) EU/dL Ur Leukocyte Esterase Moderate H (Negative) Urine RBC 20-50 H (0-2) HPF Urine WBC >50 H (0-5) HPF 03/26/20 03/27/20 03/27/20 Range/Units 17:28 08:26 08:26 WBC (4.4-10.8) 10^3/uL Plt Count 117 L (130-400) 10^3/uL MPV 13.0 H (8.0-11.0) fL Absolute Neutrophils 7.17 H (1.2-6.7) 10^3/uL Absolute Monocytes 1.28 H (0.1-0.8) 10^3/uL Sodium (136-145) mmol/L Potassium (3.5-5.1) mmol/L BUN 30 H D 21 H D (7-18) mg/dL Glucose 122 H (74-106) mg/dL Hemoglobin A1c (3.8-5.6) % Magnesium 1.7 L (1.8-2.4) mg/dL HDL Cholesterol 23 L (40-60) mg/dL Urine Blood (Negative) Urine Nitrite (Negative) Urine Urobilinogen (Up TO 0.2) EU/dL Ur Leukocyte Esterase (Negative) Urine RBC (0-2) HPF Urine WBC (0-5) HPF 03/27/20 Range/Units 08:26 WBC (4.4-10.8) 10^3/uL Plt Count (130-400) 10^3/uL MPV (8.0-11.0) fL Absolute Neutrophils (1.2-6.7) 10^3/uL Absolute Monocytes (0.1-0.8) 10^3/uL Sodium (136-145) mmol/L Potassium (3.5-5.1) mmol/L BUN (7-18) mg/dL Glucose (74-106) mg/dL Hemoglobin A1c 6.1 H (3.8-5.6) % Magnesium (1.8-2.4) mg/dL HDL Cholesterol (40-60) mg/dL Urine Blood (Negative) Urine Nitrite (Negative) Urine Urobilinogen (Up TO 0.2) EU/dL Ur Leukocyte Esterase (Negative) Urine RBC (0-2) HPF Urine WBC (0-5) HPF Vital Signs Temperature 35.7 C L 03/27/20 08:10 Temperature Source Tympanic 03/27/20 08:10 Pulse 57 L 03/27/20 08:10 Pulse Rhythm Regular 03/27/20 02:03 Pulse 57 L 03/26/20 15:20 Respiratory Rate 17 03/27/20 08:10 Respiratory Effort 03/27/20 02:03 Respiratory Depth Normal 03/27/20 02:03 Respiratory Pattern Normal 03/27/20 02:03 Blood Pressure 131/73 03/27/20 08:10 Blood Pressure Mean 78 03/26/20 15:16 Pulse Oximetry 95 03/27/20 08:10 Oxygen Delivery Method Nasal Cannula 03/27/20 08:10 Oxygen Flow Rate 4 03/27/20 08:10 Pain Level 8 03/27/20 08:10 Comment chronic O2 user at home - 4 liters 03/26/20 10:33 Intake & Output 03/26/20 03/26/20 03/27/20 11:59 23:59 11:59 Intake Total 610 / 610 1000 / 1000 Output Total 200 / 1775 1575 / 1775 1600 / 1600 Balance -200 / -1165 -965 / -1165 -600 / -600 Weight 111.13 kg 111.13 kg Intake: IV 610 / 610 1000 / 1000 Output: Urine 200 / 1775 1575 / 1775 1600 / 1600 Other: Urine Color Yellow Dark Taryn Urine Appearance Clear Clear Urine Odor Normal Voiding Methods Urinal Laboratory Results WBC 10.26 10^3/uL (4.4-10.8) 03/27/20 08:26 RBC 4.48 10^6/uL (4.36-5.78) 03/27/20 08:26 Hgb 14.2 g/dL (13.5-17.5) 03/27/20 08:26 Hct 42.4 % (40.0-50.0) 03/27/20 08:26 MCV 94.6 fL (80-95) 03/27/20 08:26 MCH 31.7 pg (27.0-33.0) 03/27/20 08:26 MCHC 33.5 % (32.0-36.0) 03/27/20 08:26 RDW 12.0 % (11.8-14.1) 03/27/20 08:26 Plt Count 117 10^3/uL (130-400) L 03/27/20 08:26 MPV 13.0 fL (8.0-11.0) H 03/27/20 08:26 Immature Gran % 0.4 03/27/20 08:26 Neutrophils % 69.8 03/27/20 08:26 Lymphocytes % 16.8 03/27/20 08:26 Monocytes % 12.5 03/27/20 08:26 Eosinophils % 0.3 03/27/20 08: Basophils % 0.2 03/27/20 08:26 Nucleated RBC % 0 % 03/27/20 08:26 Absolute Neutrophils 7.17 10^3/uL (1.2-6.7) H 03/27/20 08:26 Absolute Lymphocytes 1.72 10^3/uL (1.2-3.4) 03/27/20 08: Absolute Monocytes 1.28 10^3/uL (0.1-0.8) H 03/27/20 08: Absolute Eosinophils 0.03 10^3/uL (0.0-0.7) 03/27/20 08: Absolute Basophils 0.02 10^3/uL (0.0-0.2) 03/27/20 08:26 Sodium 137 mmol/L (136-145) 03/27/20 08:26 Potassium 4.5 mmol/L (3.5-5.1) 03/27/20 08:26 Chloride 102 mmol/L (98-107) 03/27/20 08:26 Carbon Dioxide 28.4 mmol/L (21.0-32.0) 03/27/20 08:26 Anion Gap 6.6 mmol/L (3-11) 03/27/20 08:26 BUN 21 mg/dL (7-18) H D 03/27/20 08:26 Creatinine 0.75 mg/dL (0.70-1.30) 03/27/20 08:26 Estimated GFR/1.73 m2 >= 60.00 (mL/min/1.73m2) 03/27/20 08:26 Glucose 122 mg/dL (74-106) H 03/27/20 08:26 Hemoglobin A1c 6.1 % (3.8-5.6) H 03/27/20 08:26 Calcium 9.3 mg/dL (8.5-10.1) 03/27/20 08:26 Magnesium 1.7 mg/dL (1.8-2.4) L 03/27/20 08:26 Total Bilirubin 0.9 mg/dL (0.2-1.0) 03/26/20 11:15 AST 23 U/L (15-37) 03/26/20 11:15 ALT 29 U/L (16-63) 03/26/20 11:15 Alkaline Phosphatase 83 U/L (46-116) 03/26/20 11:15 Troponin I < 0.05 ng/mL (<0.06) 03/26/20 13:53 Total Protein 7.3 g/dL (6.4-8.2) 03/26/20 11:15 Albumin 4.0 g/dL (3.4-5.0) 03/26/20 11:15 Triglycerides 89 mg/dL (<150) 03/27/20 08:26 Total Cholesterol 94 mg/dL (<200) 03/27/20 08:26 LDL Cholesterol, Calc 54 mg/dL (<100) 03/27/20 08: HDL Cholesterol 23 mg/dL (40-60) L 03/27/20 08:26 TSH 0.70 uIU/mL (0.36-3.74) 03/27/20 08:26 Urine Color Yellow (Yellow) 03/26/20 11:30 Urine Clarity Sl cloudy (Clear) 03/26/20 11:30 Urine pH 6.0 (5-8) 03/26/20 11:30 Ur Specific [place] 1.020 (1.005-1.025) 03/26/20 11:30 Urine Protein Negative mg/dL (Negative) 03/26/20 11:30 Urine Ketones Negative mg/dL (Negative) 03/26/20 11:30 Urine Blood Trace-intact (Negative) H 03/26/20 11:30 Urine Nitrite Positive (Negative) H 03/26/20 11:30 Urine Bilirubin Negative (Negative) 03/26/20 11:30 Urine Urobilinogen 1.0 EU/dL (Up TO 0.2) H 03/26/20 11:30 Ur Leukocyte Esterase Moderate (Negative) H 03/26/20 11:30 Urine RBC 20-50 HPF (0-2) H 03/26/20 11:30 Urine WBC >50 HPF (0-5) H 03/26/20 11:30 Ur Epithelial Cells Negative HPF (Negative) 03/26/20 11:30 Urine Crystals Negative HPF (Negative) 03/26/20 11:30 Urine Bacteria Many HPF (Negative) 03/26/20 11:30 Urine Casts 0-2 coarse granular LPF (Negative) 03/26/20 11:30 Urine Mucus Negative (Negative) 03/26/20 11:30 Urine Other Rare renal (Negative) 03/26/20 11:30 Ur Culture Indicated? Yes 03/26/20 11:30 Urine Glucose Negative mg/dL (Negative) 03/26/20 11:30
[2020-03-27] MEDS: levoFLOXacin 500 MG, levoFLOXacin 250 MG 750 MG PO (11:33)
[2020-03-27] MEDS: Magnesium Oxide 400 MG TAB PO ×2 (11:33→20:32)
[2020-03-27 11:35] VITALS: BP 123/71; PULSE 59; RESP 16; TEMP 35; O2SAT 96
[2020-03-27 15:33] VITALS: BP 105/71
[2020-03-27] MEDS: Enoxaparin 40 MG/0.4 ML SYR SC (18:05)
[2020-03-27 18:10] VITALS: BP 145/107; PULSE 81; RESP 18; TEMP 36.4; O2SAT 98
[2020-03-27] MEDS: Atorvastatin 10 MG TAB PO (20:32)
[2020-03-27] MEDS: Metoprolol 25 MG TAB 12.5 MG PO (20:32)
[2020-03-27] MEDS: Bisacodyl 5 MG TABEC PO (20:32)
[2020-03-27 20:38] VITALS: BP 139/94; PULSE 60; RESP 18; TEMP 36.4; O2SAT 93
--- NOTE | 2020-03-27 20:50 | INITIAL_ITS ---
- If Service Date Differs Date of service: 03/27/20 Time of Service: 20:50 Care Management Initial Assess REASON FOR HOSPITALIZATION:: UTI, Hyperkalemia PAST MEDICAL HISTORY/PAST SURGICAL HISTORY:: Medical History . Pacemaker (Acute) PREVIOUS FUNCTIONAL STATUS/SOCIAL/FAMILY SUPPORTS:: Esdras lives in [place] with his director fixed income, Tamanna. He is a . Esdras is currently on restrictions as a PUI for Covid 19, therefore CM was unable to meet with him to gather more history. CURRENT FUNCTIONAL STATUS:: Esdras is currently on precautions as a PUI for COVID 19, therefore CM did not visit with him in person today. Per report, he is feeling better today and is on PO levaquin for his UTI. CM will continue to follow. ADVANCE DIRECTIVES:: None on file. Has patient been provided with info about the portal/API?: Yes Did the patient sign up for the portal?: Yes (previously signed up) CODE STATUS:: Full Code INSURANCE COVERAGE / FINANCIAL ISSUES:: [employer] CURRENT HOME/COMMUNITY SERVICES/EQUIPMENT:: Unknown PRIMARY CARE PHYSICIAN:: Kristen Lainez POTENTIAL DISCHARGE NEEDS:: Evaluations for further needs, follow up appointments PATIENT/FAMILY EDUCATION NEEDS:: Review discharge instructions, discuss 'ask me three'. ANTICIPATED BARRIERS TO DISCHARGE:: None identified at this time. TRANSPORTATION:: Anticipate via private vehicle by family. PLAN:: Anticipate Esdras will return home when medically cleared. He will follow up with his PCP and discharge plan of care. CM will continue to follow.
[2020-03-27 21:02] LABS: COVID-19 RT-PCR UVMMC Result Negative (Negative)
[2020-03-28 00:04] VITALS: BP 128/86; PULSE 68; RESP 19; TEMP 36.6; O2SAT 94
[2020-03-28] MEDS: Acetaminophen 325 MG TAB 650 MG PO ×2 (03:05→15:29)
[2020-03-28 04:06] VITALS: BP 113/71; PULSE 52; RESP 19; TEMP 36.7; O2SAT 95
[2020-03-28] MEDS: Normal Saline 1,000 ML 80 ML IV ×2 (05:41→18:57)
[2020-03-28 07:55] VITALS: BP 113/70; PULSE 50; RESP 17; TEMP 36.8; O2SAT 95
[2020-03-28] MEDS: Nicotine 21 MG/24 HR PATCH TD (07:57)
[2020-03-28] MEDS: Tamsulosin 0.4 MG CAPCR 0.8 MG PO (07:58)
[2020-03-28] MEDS: Cholecalciferol (Vitamin D3) 1,000 UNIT TAB 1000 UNITS PO (07:58)
[2020-03-28] MEDS: Pregabalin 100 MG CAP 200 MG PO ×2 (07:58→20:56)
[2020-03-28] MEDS: levoFLOXacin 500 MG, levoFLOXacin 250 MG 750 MG PO (07:58)
[2020-03-28] MEDS: Metoprolol 25 MG TAB 12.5 MG PO ×2 (07:59→20:56)
[2020-03-28 11:20] VITALS: BP 143/85; PULSE 56; RESP 17; TEMP 36.8; O2SAT 93
--- NOTE | 2020-03-28 11:37 | IN_ITS ---
Date of service: 03/28/20 Time of Service: 11:05 PT Notes Visit Reasons: UTI,HYPERKALEMIA Inpatient Physical Therapy Evaluation Date: 03/28/20 Referring Doctor: Lara Pinzon NP PT Orders: PT CONSULT: safety consultation Precautions: fall, standard Patient Profile/Admitting Diagnosis: Patient admitted for management of UTI, hyperkalemia, hypermagnesemia. He underwent pacemaker placement 8 days ago, and had an additional re-admission in [place] 2 days post-op. He presented to [facility] ED 03/26/20 due to dizziness and lightheadedness. PMHX: Pacemaker (Acute) Bipolar I Schizophrenia Social History/Home Situation: Patient lives with his significant other in a single level home with 1 AMBROCIO. He intermittently utilizes a cane at baseline, and occasionally uses a rollator walker for outdoor ambulation. He more typically utilizes a motorized scooter for community distances due to underlying osteoarthritic pain. Equipment Owned/DME: cane, 4WW, scooter Subjective: Esdras states that he's feeling well. States that he walked to the bathroom earlier today and felt pretty good. He denies WILSON, and states that his dizziness has resolved. He feels stiff and somewhat weak versus his baseline, stating that he has been moving around much less since his surgery. Objective: General Observation: Resting in bed with IV in RUE. Mental Status: A&Ox3. Pleasant and cooperative Pain: stiffness in back and hips ROM: Right Upper Extremity: Not assessed due to postoperative cardiac precautions Left Upper Extremity:Not assessed due to postoperative cardiac precautions Right Lower Extremity: WFL Left Lower Extremity: WFL Strength: Right Upper Extremity:Not assessed due to postoperative cardiac precautions Left Upper Extremity: Not assessed due to postoperative cardiac precautions Right Lower Extremity: Flexion 4+/5. Quads 4+/5. Ankle dorsiflexion 5/5 Left Lower Extremity:Flexion 4+/5. Quads 4+/5. Ankle dorsiflexion 5/5 Bed Mobility/Transfers: Supine?Sit: Supervision, with HOB at 30 degrees Sit?stand: Supervision Stand?sit: Supervision Gait: Patient ambulates 25 feet with FW W, WBAT, supervision Balance: Static Sitting: Normal Dynamic Sitting: Good Static Standing: Good Dynamic Standing: Fair Special Tests: Mobility Limitations Standardized Measure [facility]-PAC 6 clicks Basic Mobility Inpatient Short Form: Raw Score: 23 CMS Score: 11% deficit Informed Consent/Education: Patient instructed in purpose of PT consult and plan of care. Assessment: Patient is a 65 year old male referred to physical therapy services with the diagnosis of UTI. Patient presents with clinical signs and symptoms consistent with mobility deficits related to acute medical issues in addition to recent pacemaker placement. Patient demonstrated good safety and independence, and will be safe for transition back home once medically stable. Recommend initiation of home health PT to address limitations in activity tolerance related to his recent cardiac surgery. He currently demonstrates the following impairment level findings: 1. Decreased activity tolerance 2. Postop precautions Impairments are contributing to the following functional limitations: 1. Fatigue with household distance ambulation Patient is assessed as Moderate [id number] complexity based on the following: History: 65-year-old male seen in acute care setting where he is being medically managed for UTI at 8 days status post pacemaker placement. Medical history includes mental health diagnoses and self-reported chronic osteoarthritic pain. Examination: Functional limitations as noted above Presentation: Evolving due to postoperative status Decision Making: Moderate complexity Plan of Care/Treatment Plan: No additional PT required in acute care setting. DISCHARGE RECOMMENDATIONS: Home health PT TREATMENT CODE/TIME: 1105?1130 ([id number]) Grace Gonzalez, PT, DPT [facility]
[2020-03-28 15:10] VITALS: BP 125/75; PULSE 60; RESP 19; TEMP 36.5; O2SAT 94
--- NOTE | 2020-03-28 15:52 | PGE_ITS ---
Date of Service Date of service: 03/28/20 Time of Service: 15:52 Assessment and Plan Assessment and plan (1) Hyperkalemia: Start date: 03/28/20 Start time: 15:53 Status: Resolved Assessment and plan: Resolved. Will recheck in am. (2) UTI (urinary tract infection): Start date: 03/28/20 Start time: 15:54 Status: Acute Assessment and plan: No previous UTI Urine cx revealing E. Coli sensitivities pending. Possible discharge in am. Day 2 of levaquin Urticaria resolved. (3) Bipolar 1 disorder: Start date: 03/28/20 Start time: 15:56 Status: Chronic Assessment and plan: Behavior normal No current psych meds other than depo haldol Q4W (4) Schizophrenia: Start date: 03/28/20 Start time: 15:56 Status: Chronic Assessment and plan: Haloperidol deconoate 150mg IM Q4W. Qualifiers: Schizophrenia type: unspecified Qualified Code(s): F20.9 - Schizophrenia, unspecified (5) Slurred speech: Start date: 03/28/20 Start time: 15:56 Status: Acute Assessment and plan: Normal head CT and CTA head/neck Unclear of baseline speech pattern. Monitor for other clinical signs of neurologic impairment. (6) Hypomagnesemia: Start date: 03/28/20 Start time: 15:56 Status: Acute Assessment and plan: Replete mag and monitor. (7) Pacemaker: Start date: 03/28/20 Start time: 15:56 Status: Acute Assessment and plan: S/p 7 days, given fatigue and weakness relieved, likly not from pacemaker, no chest pain, SOB, n/v/d diaphoresis, therefore not concerned for pacemaker, he did have a telemetery reading of VTACH for about 15 seconds and approx 20 beats, however he does have tremors from parkinsoniam and his hand was laying on the telemetry box he was asymptomatic, no diaphoresis, CP, n/v/d, or any associated symptoms therefore unlikely cardiac related. (8) Dehydration: Start date: 03/28/20 Start time: 16:02 Status: Resolved Assessment and plan: Resolved. Above case discussed with Dr. Ramirez. Subjective Subjective Patient reports: feels better Interval history since last seen: Feeling much better, urticaria cleared. He would like to go home. UTI with E. Coli sensitivities pending currently on levaquin will await sensitivities. Ambulatory at baseline per PT> Exam Const General: cooperative and no acute distress Nutritional Appearance: obese Orientation: alert and oriented x3 HENMT Head: normal to inspection and atraumatic Eyes General: appearance normal, both eyes and all related structures Sclera: sclerae normal Neck Neck: full ROM and no JVD Resp Effort & Inspection: normal respiratory effort Auscultation: clear to auscultation bilaterally Cardio Rate: regular rate (60) Rhythm: regular rhythm Heart Sounds: S1 normal and S2 normal GI Inspection: obesity Palpation: soft Percussion: normal to percussion Auscultation: normal bowel sounds Skin General skin exam: no rashes or lesions noted Rashes: no rashes Wounds: no wounds Extrem General: no pedal edema and no calf tenderness Psych Appearance: grossly normal Speech and Movement: slurred speech (mild) Mood: congruent mood Affect: normal affect Attitude: cooperative Thought Content: normal Objective Objective Clinical Data: Vital Signs Temperature 36.5 C 03/28/20 15:10 Temperature Source Tympanic 03/28/20 15:10 Pulse 60 03/28/20 15:10 Pulse Rhythm Regular 03/28/20 09:32 Pulse 57 L 03/26/20 15:20 Respiratory Rate 19 03/28/20 15:10 Respiratory Effort 03/28/20 09:32 Respiratory Depth Normal 03/28/20 09:32 Respiratory Pattern Normal 03/28/20 09:32 Blood Pressure 125/75 03/28/20 15:10 Blood Pressure Mean 78 03/26/20 15:16 Pulse Oximetry 94 L 03/28/20 15:10 Oxygen Delivery Method Room Air 03/28/20 15:10 Oxygen Flow Rate 0 03/28/20 15:10 Pain Level 6 03/28/20 15:29 Comment chronic O2 user at home - 4 liters 03/26/20 10:33 Intake & Output 03/27/20 03/28/20 03/28/20 23:59 11:59 23:59 Intake Total 981.333 / 1981.333 910.667 / 1610.667 700 / 1610.667 Output Total 2350 / 4350 700 / 2100 1400 / 2100 Balance -1368.667 / -2368.667 210.667 / -489.333 -700 / -489.333 Intake: IV 981.333 / 1981.333 910.667 / 910.667 Oral 700 / 700 Output: Urine 2350 / 4350 700 / 2100 1400 / 2100 Other: Urine Color Yellow Straw Yellow Urine Appearance Clear Clear Clear Urine Odor None Normal Normal Comment 1 episode of incontinence Stool Size Large Stool Characteristics Formed Brown Voiding Methods Urinal Urinal Urinal Laboratory Results WBC 10.26 10^3/uL (4.4-10.8) 03/27/20 08:26 RBC 4.48 10^6/uL (4.36-5.78) 03/27/20 08:26 Hgb 14.2 g/dL (13.5-17.5) 03/27/20 08: Hct 42.4 % (40.0-50.0) 03/27/20 08: MCV 94.6 fL (80-95) 03/27/20 08: MCH 31.7 pg (27.0-33.0) 03/27/20 08: MCHC 33.5 % (32.0-36.0) 03/27/20 08: RDW 12.0 % (11.8-14.1) 03/27/20 08:26 Plt Count 117 10^3/uL (130-400) L 03/27/20 08: MPV 13.0 fL (8.0-11.0) H 03/27/20 08:26 Immature Gran % 0.4 03/27/20 08: Neutrophils % 69.8 03/27/20 08: Lymphocytes % 16.8 03/27/20 08: Monocytes % 12.5 03/27/20 08:26 Eosinophils % 0.3 03/27/20 08: Basophils % 0.2 03/27/20 08:26 Nucleated RBC % 0 % 03/27/20 08: Absolute Neutrophils 7.17 10^3/uL (1.2-6.7) H 03/27/20 08:26 Absolute Lymphocytes 1.72 10^3/uL (1.2-3.4) 03/27/20 08: Absolute Monocytes 1.28 10^3/uL (0.1-0.8) H 03/27/20 08:26 Absolute Eosinophils 0.03 10^3/uL (0.0-0.7) 03/27/20 08:26 Absolute Basophils 0.02 10^3/uL (0.0-0.2) 03/27/20 08:26 Sodium 137 mmol/L (136-145) 03/27/20 08:26 Potassium 4.5 mmol/L (3.5-5.1) 03/27/20 08:26 Chloride 102 mmol/L (98-107) 03/27/20 08:26 Carbon Dioxide 28.4 mmol/L (21.0-32.0) 03/27/20 08:26 Anion Gap 6.6 mmol/L (3-11) 03/27/20 08:26 BUN 21 mg/dL (7-18) H D 03/27/20 08:26 Creatinine 0.75 mg/dL (0.70-1.30) 03/27/20 08:26 Estimated GFR/1.73 m2 >= 60.00 (mL/min/1.73m2) 03/27/20 08:26 Glucose 122 mg/dL (74-106) H 03/27/20 08:26 Hemoglobin A1c 6.1 % (3.8-5.6) H 03/27/20 08:26 Calcium 9.3 mg/dL (8.5-10.1) 03/27/20 08:26 Magnesium 1.7 mg/dL (1.8-2.4) L 03/27/20 08:26 Total Bilirubin 0.9 mg/dL (0.2-1.0) 03/26/20 11:15 AST 23 U/L (15-37) 03/26/20 11:15 ALT 29 U/L (16-63) 03/26/20 11:15 Alkaline Phosphatase 83 U/L (46-116) 03/26/20 11:15 Troponin I < 0.05 ng/mL (<0.06) 03/26/20 13:53 Total Protein 7.3 g/dL (6.4-8.2) 03/26/20 11:15 Albumin 4.0 g/dL (3.4-5.0) 03/26/20 11:15 Triglycerides 89 mg/dL (<150) 03/27/20 08:26 Total Cholesterol 94 mg/dL (<200) 03/27/20 08:26 LDL Cholesterol, Calc 54 mg/dL (<100) 03/27/20 08:26 HDL Cholesterol 23 mg/dL (40-60) L 03/27/20 08: TSH 0.70 uIU/mL (0.36-3.74) 03/27/20 08:26 Urine Color Yellow (Yellow) 03/26/20 11:30 Urine Clarity Sl cloudy (Clear) 03/26/20 11:30 Urine pH 6.0 (5-8) 03/26/20 11:30 Ur Specific [place] 1.020 (1.005-1.025) 03/26/20 11:30 Urine Protein Negative mg/dL (Negative) 03/26/20 11:30 Urine Ketones Negative mg/dL (Negative) 03/26/20 11:30 Urine Blood Trace-intact (Negative) H 03/26/20 11:30 Urine Nitrite Positive (Negative) H 03/26/20 11:30 Urine Bilirubin Negative (Negative) 03/26/20 11:30 Urine Urobilinogen 1.0 EU/dL (Up TO 0.2) H 03/26/20 11:30 Ur Leukocyte Esterase Moderate (Negative) H 03/26/20 11:30 Urine RBC 20-50 HPF (0-2) H 03/26/20 11:30 Urine WBC >50 HPF (0-5) H 03/26/20 11:30 Ur Epithelial Cells Negative HPF (Negative) 03/26/20 11:30 Urine Crystals Negative HPF (Negative) 03/26/20 11:30 Urine Bacteria Many HPF (Negative) 03/26/20 11:30 Urine Casts 0-2 coarse granular LPF (Negative) 03/26/20 11:30 Urine Mucus Negative (Negative) 03/26/20 11:30 Urine Other Rare renal (Negative) 03/26/20 11:30 Ur Culture Indicated? Yes 03/26/20 11:30 Urine Glucose Negative mg/dL (Negative) 03/26/20 11:30 COVID-19 PCR Negative (Negative) 03/26/20 12:45 Nasopharyn COVID-19 PCR Not Applicable 03/26/20 12:45 Ref Test Perform Site [place] [facility] 03/26/20 12:45
--- NOTE | 2020-03-28 17:56 | CMPROGNOTE_ITS ---
- If Service Date Differs Date of service: 03/28/20 Time of Service: 17:57 Care Management Progress Note S/O: Esdras was sitting up in bed when CM met with him today. He reported that he was waiting to hear if he would be able to return home today. Per report, still waiting for sensitivities. He may be ready for discharge tomorrow. Per PT, he is ambulatory at baseline. CM will continue to follow. A: Esdras is a 65 year old male admitted to [facility] on 03/26/20 for UTI, hyperkalemia. P: Anticipate Esdars will return home when medically cleared. He will follow up with his PCP and discharge plan of care. CM will continue to follow.
[2020-03-28] MEDS: Enoxaparin 40 MG/0.4 ML SYR SC (17:58)
[2020-03-28 19:04] VITALS: BP 135/86; PULSE 59; RESP 19; TEMP 36.4; O2SAT 99
[2020-03-28] MEDS: Magnesium Oxide 400 MG TAB PO (21:57)
[2020-03-28] MEDS: Bisacodyl 5 MG TABEC PO (21:58)
[2020-03-28] MEDS: Atorvastatin 10 MG TAB PO (21:58)
[2020-03-29 00:19] VITALS: BP 120/68; PULSE 66; RESP 19; TEMP 36.6; O2SAT 95
[2020-03-29] MEDS: Acetaminophen 325 MG TAB 650 MG PO (02:03)
[2020-03-29 04:00] VITALS: BP 126/81; PULSE 58; RESP 20; TEMP 36.3; O2SAT 88
[2020-03-29 04:10] VITALS: O2SAT 90
[2020-03-29] MEDS: Normal Saline 1,000 ML 80 ML IV (06:05)
[2020-03-29 07:27] VITALS: BP 131/85; PULSE 52; RESP 17; TEMP 36.6; O2SAT 95
[2020-03-29 08:01] LABS: Abs Immature Grans 0.03 10^3/uL (0.0-0.06); Absolute Basophil Count 0.04 10^3/uL (0.0-0.2); Absolute Eosinophil Count 0.06 10^3/uL (0.0-0.7); Absolute Lymphocyte Count 1.93 10^3/uL (1.2-3.4); Absolute Monocyte Count 1.01 10^3/uL (0.1-0.8); Absolute Neutrophil Count 3.31 10^3/uL (1.2-6.7); Basophils % 0.6; Eosinophils % 0.9; HCT 39.8 % (40.0-50.0); HGB 13.7 g/dL (13.5-17.5); Immature Grans % 0.5; Lymphocytes % 30.3; MCH 31.9 pg (27.0-33.0); MCHC 34.4 % (32.0-36.0); MCV 92.6 fL (80-95); MPV 12.8 fL (8.0-11.0); Monocytes % 15.8; Neutrophils % 51.9; Nucleated RBC 0 %; Platelet Count 123 10^3/uL (130-400); RDW 11.9 % (11.8-14.1); RDW-SD 40.5 fL; WBC 6.38 10^3/uL (4.4-10.8)
[2020-03-29 08:08] LABS: Anion Gap 7.4 mmol/L (3-11); BUN 17 mg/dL (7-18); CO2 28.6 mmol/L (21.0-32.0); CREATININE 0.96 mg/dL (0.70-1.30); Calcium 9.5 mg/dL (8.5-10.1); Chloride 102 mmol/L (98-107); Glucose 113 mg/dL (74-106); Magnesium 1.6 mg/dL (1.8-2.4); Potassium 4.2 mmol/L (3.5-5.1); Sodium 138 mmol/L (136-145)
[2020-03-29 09:50] VITALS: PULSE 54
[2020-03-29 11:22] VITALS: BP 180/82; PULSE 70; RESP 17; TEMP 36.5; O2SAT 94
--- NOTE | 2020-03-29 11:46 | W.PM.DS.N ---
Date of service: 03/29/20 Time of Service: 11:46 DS: Diagnosis Discharge Diagnosis (1) Hyperkalemia: Status: Resolved (2) UTI (urinary tract infection): Status: Acute (3) Bipolar 1 disorder: Status: Chronic (4) Schizophrenia: Status: Chronic (5) Slurred speech: Status: Acute (6) Hypomagnesemia: Status: Acute (7) Pacemaker: Status: Acute (8) Dehydration: Status: Resolved Discharge Plan Disposition Patient Disposition: HOME Condition: Improving Discharge Details Chief Complaint: CVA/TIA Reason For Visit: UTI,HYPERKALEMIA Admit Date/Time: 03/26/20 15:11 Admit Provider: Jan Man Attending Provider: Jan Man Primary Care Provider: Kristen Lainez ED Provider: Darell Stephen Hospital Course Hospital Course: Lokesh Saucedo is a very pleasant 65-year-old man with a past medical history significant for hypertension, anxiety disorder, schizophrenia, bipolar, who is one-week status post pacemaker placement. He presented to the emergency department on 03/26/2020 with reports of generalized weakness and slurred speech. Head CT in the ED was negative for acute findings, he was not eligible for an MRI due to presence of his pacemaker, CTA head neck showed normal [place], less than 50% stenosis due to plaque in the common carotid bulbs and proximal internal carotid arteries. He was noted to be hyperkalemic, he was given sodium bicarbonate, calcium gluconate and insulin with D50. He was found to have a urinary tract infection, he was initially started on cefepime which was changed to Levaquin. Today is day antibiotic #4 of 5. His hyperkalemia resolved, his potassium is 4.2 on the day of discharge. He received Mg supplementation. He was monitored on telemetry and was noted to have PSVT x22 beats, he has had episodes of PSVT in the past. He is already on a beta-arias, metoprolol 12.5 twice daily. His heart rate is bradycardic at 52. No adjustments were made to his beta-arias. He is feeling well today, he reports he is ready for discharge. His urine culture grew pansensitive E. coli. He will be discharged home to complete his Levaquin course. He will follow-up with his primary care provider in 1-2 weeks. Home health services will be resumed upon discharge home, add home PT. Home Meds and New Rx's Prescriptions: New acetaminophen [Tylenol] 325 mg Tablet 650 mg PO Q4H PRN PRNQty: 0 RF: 0 levofloxacin [Levaquin] 750 mg Tablet 750 mg PO QAM Qty: 2 RF: 0 Continued atorvastatin [Lipitor] 10 MG tablet 10 mg PO HS RF: 0 bisacodyl 5 MG tablet,delayed release (DR/EC) 5 mg PO HS RF: 0 ibuprofen 600 MG tablet 600 mg PO QID RF: 0 metoprolol tartrate 12.5 MG tablet 12.5 mg PO BID RF: 0 nicotine 21 mg/24 hr Patch 24 Hour 1 patch TRANSDERMAL DAILY RF: 0 pregabalin [Lyrica] 200 mg Capsule 200 mg PO BID RF: 0 tamsulosin 0.4 mg Capsule 0.8 mg PO DAILY RF: 0 haloperidol decanoate 50 mg/mL solution 150 mg IM Q4W PRNRF: 0 calcifediol 30 mcg Capsule,Extended Release 24 Hr 25 mcg PO DAILY RF: 0 Changed lisinopril 40 MG tablet 40 mg PO DAILY Qty: 0 RF: 0 Discharge Instructions Instructions: Urinary Tract Infection in Men (DC) Additional Instructions: Take the levaquin (antibiotic) until it is gone. Follow up with your PCP as scheduled. Stand Alone Forms: Nursing Discharge Form Referrals: Kristen Lainez [Primary Care Provider] - Activity:: Activity as Tolerated Equipment/Supplies:: No Equipment Needed Diet:: heart healthy Discharge Orders Discharge Orders: Discharge Order (Routine); Ordered 03/29/20 Ordered By: Otilia Portillo DS: Summary Status at Discharge Functional status at discharge: uses cane/walker Overall status at discharge: patient is not back to baseline Mental Status: mental status grossly normal Speech and Movement: speech and movement normal Mood: congruent mood Affect: normal affect Exam Narrative Exam Narrative: General: Very pleasant 65-year-old man sitting up in the chair, alert and oriented, answers questions appropriately. In no acute distress. HEENT: Normocephalic, atraumatic, pupils equal and round, EOMI, mucous membranes moist. Respiratory: Respirations appear even and unlabored, lung sounds clear bilaterally. Cardiovascular: Heart has regular rate and rhythm, no murmur appreciated. GI: Large, round abdomen,+ bowel sounds throughout, nontender on palpation, nondistended. Extremities: No clubbing, cyanosis or edema. Psych Mental Status: mental status grossly normal Speech and Movement: speech and movement normal Mood: congruent mood Affect: normal affect DS: Data Vitals/I&O Vitals and I&O: Vital Signs Temperature 36.5 C 03/29/20 11:22 Temperature Source Temporal Artery Scan 03/29/20 11:22 Pulse 70 03/29/20 11:22 Pulse Rhythm Regular 03/29/20 02:05 Pulse 57 L 03/26/20 15:20 Respiratory Rate 17 03/29/20 11:22 Respiratory Effort 03/29/20 02:05 Respiratory Depth Normal 03/29/20 02:05 Respiratory Pattern Normal 03/29/20 02:05 Blood Pressure 180/82 H 03/29/20 11:22 Blood Pressure Mean 78 03/26/20 15:16 Pulse Oximetry 94 L 03/29/20 11:22 Oxygen Delivery Method Room Air 03/29/20 11:22 Oxygen Flow Rate 0 03/29/20 11:22 Pain Level 6 03/29/20 11:22 Comment 03/29/20 04:00 Intake & Output 03/28/20 03/28/20 03/29/20 11:59 23:59 11:59 Intake Total 910.667 / 2850.667 1940 / 2850.667 1490.667 / 1490.667 Output Total 700 / 2100 1400 / 2100 650 / 650 Balance 210.667 / 750.667 540 / 750.667 840.667 / 840.667 Intake: IV 910.667 / 2620.062 6200 / 1910.667 890.667 / 890.667 Oral 940 / 940 600 / 600 Output: Urine 700 / 2100 1400 / 2100 650 / 650 Other: Urine Color Straw Yellow Yellow Urine Appearance Clear Clear Clear Urine Odor Normal Normal None Stool Size Large Stool Characteristics Formed Brown Voiding Methods Urinal Urinal Urinal Data Completed and Pending Completed studies during hospitalization [Text1]: 03/26/2020: Chest x-ray Impression: No acute pulmonary findings. Head CT: Impression: No acute intracranial process. CTA head/neck: IMPRESSION: 1. Normal CTA examination of the [place]. 2. Calcific plaque in the common carotid bulbs and proximal internal carotid arteries cause mild, less than 50 percent stenosis. Labs on day of discharge: Labs from last 24 hours 03/29/20 03/29/20 07:30 07:30 WBC 6.38 RBC 4.30 L Hgb 13.7 Hct 39.8 L MCV 92.6 MCH 31.9 MCHC 34.4 RDW 11.9 Plt Count 123 L MPV 12.8 H Immature Gran % 0.5 Neutrophils % 51.9 Lymphocytes % 30.3 Monocytes % 15.8 Eosinophils % 0.9 Basophils % 0.6 Nucleated RBC % 0 Absolute Neutrophils 3.31 Absolute Lymphocytes 1.93 Absolute Monocytes 1.01 H Absolute Eosinophils 0.06 Absolute Basophils 0.04 Sodium 138 Potassium 4.2 Chloride 102 Carbon Dioxide 28.6 Anion Gap 7.4 BUN 17 Creatinine 0.96 Estimated GFR/1.73 m2 >= 60.00 Glucose 113 H Calcium 9.5 Magnesium 1.6 L PFSH Medical History Bipolar 1 disorder (Chronic) Near syncope (Acute) Pacemaker (Acute) Pneumonitis (Acute) Schizophrenia (Chronic) UTI (urinary tract infection) (Acute) Social History Smoking/Tobacco Use Status: Current-Occasional Alcohol Intake: former Drug use: Daily Substance use type: marijuana Do you feel safe at home: Yes Do you feel safe in your relationship?: Yes
[2020-03-29] MEDS: Cholecalciferol (Vitamin D3) 1,000 UNIT TAB 1000 UNITS PO (12:01)
[2020-03-29] MEDS: Tamsulosin 0.4 MG CAPCR 0.8 MG PO (12:01)
[2020-03-29] MEDS: levoFLOXacin 500 MG, levoFLOXacin 250 MG 750 MG PO (12:02)
[2020-03-29] MEDS: Metoprolol 25 MG TAB 12.5 MG PO (12:02)
[2020-03-29] MEDS: Nicotine 21 MG/24 HR PATCH TD (12:03)
[2020-03-29] MEDS: Magnesium Oxide 400 MG TAB PO (12:03)
[2020-03-29] MEDS: Pregabalin 100 MG CAP 200 MG PO (12:04)
--- NOTE | 2020-03-29 16:48 | PDOC.CMDIS ---
- If Service Date Differs Date of service: 03/29/20 Time of Service: 16:48 LACE Index Scoring Tool - Questions: Length of Stay (in days): 3 Acuity (Admit via E.D.?): Yes E.D. Visits: 2 - Answers: Total Score: 8 Risk of Readmission: Low Risk Care Management Discharge Reason for Hospitalization: UTI, Hyperkalemia Discharge Plan: Esdras will return home with a resumption of HH RN, and an addition of PT. Esdras [facility] but [facility] asked the provider to send his abx to [facility] in [place]. He will follow up with his PCP and discharge plan of care. His s/o will drive him home via private vehicle. He is happy to be going home. Patient/Family Education Needs: Review discharge instructions regarding activity levels and medications, discussion of self care needs including ask me three and goals of care. Services Needed at Discharge: Home Health Care Services (HC RN, PT)
== END 2020-03-29 13:53 | disposition home or self-care (01) | DRG 690 ==
LOC: ER 10:56 → MS 03-28 09:18
PROVIDERS: Internal Medicine; Nurse Practitioner Family; Admitting Provider Family Medicine; Emergency Provider Student in an Organized Health Care Education/Training Program; PCP Nurse Practitioner Primary Care; Visit Provider Family Medicine
DX: N39.0 Urinary tract infection, site not specified (principal); E87.5 Hyperkalemia; F31.9 Bipolar disorder, unspecified; E86.0 Dehydration; F20.9 Schizophrenia, unspecified; E83.42 Hypomagnesemia; Z95.0 Presence of cardiac pacemaker; R47.81 Slurred speech; I10 Essential (primary) hypertension; F41.9 Anxiety disorder, unspecified; R53.1 Weakness
CPT/HCPCS: 36415; 36416; 70496; 70498; 80048; 80053; 80061; 82962; 87077; 93005; 96361; 96365; 96367; 96372; 96375; 97162; 99222; 99233; 99239; 99285; J1650; U0003; 70450; 71045; 81003; 81015; 83036; 83735; 84443; 84484; 85025; 87086; 87186; 93010; J0610; J0696; J1200; J3490

== ENCOUNTER 2020-08-05 16:24 | Outpatient (REF) | payer OTHER, SELFPAY ==
[2020-08-05 15:50] LABS: HCT 45.2 % (40.0-50.0); HGB 15.4 g/dL (13.5-17.5); MCH 31.9 pg (27.0-33.0); MCHC 34.1 % (32.0-36.0); MCV 93.6 fL (80-95); Platelet Count 119 10^3/uL (130-400); RBC 4.83 10^6/uL (4.36-5.78); RDW 12.9 % (11.8-14.1); RDW-SD 44.4 fL; WBC 6.97 10^3/uL (4.4-10.8)
[2020-08-05 17:00] LABS: ALT 28 U/L (16-63); AST 18 U/L (15-37); Albumin 4.2 g/dL (3.4-5.0); Alkaline Phosphatase 83 U/L (46-116); Anion Gap 10.7 mmol/L (3-11); BUN 16 mg/dL (7-18); Bilirubin, Total 0.5 mg/dL (0.2-1.0); CO2 27.3 mmol/L (21.0-32.0); CREATININE 1.08 mg/dL (0.70-1.30); Calcium 9.3 mg/dL (8.5-10.1); Chloride 102 mmol/L (98-107); Glucose 110 mg/dL (74-106); Potassium 4.1 mmol/L (3.5-5.1); Sodium 140 mmol/L (136-145); Total Protein 7.3 g/dL (6.4-8.2)
== END 2020-08-05 16:44 ==
LOC: LBN 16:24
PROVIDERS: PCP Nurse Practitioner Primary Care; Visit Provider Internal Medicine
DX: I10 Essential (primary) hypertension (principal); I48.91 Unspecified atrial fibrillation; Z79.01 Long term (current) use of anticoagulants; J44.9 Chronic obstructive pulmonary disease, unspecified
CPT/HCPCS: 80048; 80076; 85027

== ENCOUNTER 2021-01-20 15:56 | Outpatient (REF) | payer OTHER, SELFPAY ==
[2021-01-20 17:19] LABS: Abs Immature Grans 0.03 10^3/uL (0.0-0.06); Absolute Basophil Count 0.05 10^3/uL (0.0-0.2); Absolute Eosinophil Count 0.06 10^3/uL (0.0-0.7); Absolute Monocyte Count 1.11 10^3/uL (0.1-0.8); Absolute Neutrophil Count 4.04 10^3/uL (1.2-6.7); Basophils % 0.6; Eosinophils % 0.7; HCT 47.1 % (40.0-50.0); HGB 16.1 g/dL (13.5-17.5); Immature Grans % 0.3; Lymphocytes % 38.4; MCH 31.9 pg (27.0-33.0); MCHC 34.2 % (32.0-36.0); MCV 93.5 fL (80-95); MPV 12.9 fL (8.0-11.0); Monocytes % 12.9; Neutrophils % 47.1; Nucleated RBC 0 %; Platelet Count 115 10^3/uL (130-400); RBC 5.04 10^6/uL (4.36-5.78); RDW-SD 44.5 fL; WBC 8.59 10^3/uL (4.4-10.8)
[2021-01-20 17:26] LABS: Anion Gap 9.7 mmol/L (3-11); BUN 16 mg/dL (7-18); CO2 27.3 mmol/L (21.0-32.0); CREATININE 0.9 mg/dL (0.70-1.30); Calcium 9.6 mg/dL (8.5-10.1); Chloride 103 mmol/L (98-107); Glucose 71 mg/dL (74-106); Potassium 4.5 mmol/L (3.5-5.1); Sodium 140 mmol/L (136-145)
== END 2021-01-20 15:57 | disposition home or self-care (01) ==
LOC: LBN 15:56
PROVIDERS: PCP Nurse Practitioner Primary Care; Visit Provider Internal Medicine
DX: I48.91 Unspecified atrial fibrillation (principal); Z79.01 Long term (current) use of anticoagulants; Z95.0 Presence of cardiac pacemaker
CPT/HCPCS: 80048; 85025

== ENCOUNTER 2021-03-23 13:37 | Outpatient (REF) | payer OTHER, SELFPAY ==
[2021-03-23 16:21] LABS: ALT 31 U/L (16-63); AST 18 U/L (15-37); Alkaline Phosphatase 86 U/L (46-116); Anion Gap 7.2 mmol/L (3-11); BUN 16 mg/dL (7-18); Bilirubin, Total 0.5 mg/dL (0.2-1.0); CO2 28.8 mmol/L (21.0-32.0); CREATININE 0.8 mg/dL (0.70-1.30); Calcium 9.4 mg/dL (8.5-10.1); Chloride 106 mmol/L (98-107); Glucose 84 mg/dL (74-106); Potassium 4.3 mmol/L (3.5-5.1); Sodium 142 mmol/L (136-145); Total Protein 7.2 g/dL (6.4-8.2)
[2021-03-23 17:34] LABS: Abs Immature Grans 0.03 10^3/uL (0.0-0.06); Absolute Basophil Count 0.05 10^3/uL (0.0-0.2); Absolute Eosinophil Count 0.06 10^3/uL (0.0-0.7); Absolute Monocyte Count 1.26 10^3/uL (0.1-0.8); Absolute Neutrophil Count 5.45 10^3/uL (1.2-6.7); Basophils % 0.5; Eosinophils % 0.6; HCT 49.8 % (40.0-50.0); HGB 16.5 g/dL (13.5-17.5); Immature Grans % 0.3; MCHC 33.1 % (32.0-36.0); MCV 96.5 fL (80-95); Monocytes % 13.1; Neutrophils % 56.5; Nucleated RBC 0 %; RBC 5.16 10^6/uL (4.36-5.78); RDW-SD 46.3 fL; WBC 9.65 10^3/uL (4.4-10.8)
[2021-03-23 17:56] LABS: Bilirubin Negative (Negative); Blood Negative (Negative); Clarity Clear (Clear); Glucose Negative (Negative); Ketones Negative (Negative); Leukocyte Esterase Negative (Negative); Nitrite Negative (Negative); Specific Gravity 1.015 (1.005-1.025); Urobilinogen 0.2 EU/dL (Up TO 0.2)
[2021-03-23 20:04] LABS: Platelet Count 84 10^3/uL (130-400)
[2021-03-23 20:05] LABS: Diff Comment PLT Morph Reviewed; RBC Morphology Normal
== END 2021-03-23 13:38 | disposition home or self-care (01) ==
LOC: LBN 13:37
PROVIDERS: PCP Nurse Practitioner Primary Care; Visit Provider Internal Medicine
DX: F20.9 Schizophrenia, unspecified (principal); J44.9 Chronic obstructive pulmonary disease, unspecified; Z95.0 Presence of cardiac pacemaker
CPT/HCPCS: 80053; 81003; 85025; 87086

== ENCOUNTER 2021-10-13 18:06 | Outpatient (REF) | payer OTHER, SELFPAY ==
[2021-10-13 17:19] LABS: Abs Immature Grans 0.05 10^3/uL (0.0-0.06); Absolute Basophil Count 0.03 10^3/uL (0.0-0.2); Absolute Eosinophil Count 0.03 10^3/uL (0.0-0.7); Absolute Lymphocyte Count 2.86 10^3/uL (1.2-3.4); Absolute Monocyte Count 0.92 10^3/uL (0.1-0.8); Absolute Neutrophil Count 3.86 10^3/uL (1.2-6.7); Basophils % 0.4; Eosinophils % 0.4; HCT 45.9 % (40.0-50.0); HGB 16.5 g/dL (13.5-17.5); Immature Grans % 0.6; Lymphocytes % 36.9; MCHC 35.9 % (32.0-36.0); MCV 89.1 fL (80-95); MPV 14.2 fL (8.0-11.0); Monocytes % 11.9; Neutrophils % 49.8; Nucleated RBC 0 %; Platelet Count 128 10^3/uL (130-400); RBC 5.15 10^6/uL (4.36-5.78); RDW 12.1 % (11.8-14.1); RDW-SD 39.4 fL; WBC 7.75 10^3/uL (4.4-10.8)
[2021-10-13 18:12] LABS: Vitamin D 25 Total 37.3 ng/mL (30-100)
[2021-10-13 18:18] LABS: Albumin 4.3 g/dL (3.4-5.0); Alkaline Phosphatase 124 U/L (46-116); Anion Gap 11.7 mmol/L (3-11); BUN 20 mg/dL (7-18); Bilirubin, Total 0.7 mg/dL (0.2-1.0); CO2 24.3 mmol/L (21.0-32.0); CREATININE 1.1 mg/dL (0.70-1.30); Calcium 9.2 mg/dL (8.5-10.1); Chloride 91 mmol/L (98-107); Cholesterol 138 mg/dL (<200); HDL Cholesterol 18 mg/dL (40-60); Potassium 4.6 mmol/L (3.5-5.1); Sodium 127 mmol/L (136-145); TSH 1.32 uIU/mL (0.36-3.74); Total Protein 7.4 g/dL (6.4-8.2); Vitamin B12 403 pg/mL (193-986)
[2021-10-13 18:40] LABS: Triglyceride 1189 mg/dL (<150)
[2021-10-13 19:35] LABS: Bilirubin, Direct 0.2 mg/dL (0.0-0.2); Uric Acid 6.4 mg/dL (3.5-7.2)
[2021-10-13 19:37] LABS: Glucose 537 mg/dL (74-106)
[2021-10-13 19:40] LABS: ALT 26 U/L (16-63)
[2021-10-13 19:42] LABS: LDL CHOLESTEROL 38 mg/dL (<100)
== END 2021-10-13 18:07 | disposition home or self-care (01) ==
LOC: LBN 18:06
PROVIDERS: PCP Nurse Practitioner Primary Care; Visit Provider Internal Medicine
DX: I10 Essential (primary) hypertension (principal); E66.9 Obesity, unspecified; J44.9 Chronic obstructive pulmonary disease, unspecified; Z79.01 Long term (current) use of anticoagulants
CPT/HCPCS: 80053; 80061; 80076; 82306; 83721; 82607; 83036; 84443; 84550; 85025

== ENCOUNTER 2022-03-30 16:10 | Outpatient (REF) | payer OTHER, SELFPAY ==
[2022-03-30 17:42] LABS: ALT 19 U/L (16-63); AST 12 U/L (15-37); Anion Gap 8.3 mmol/L (3-11); BUN 17 mg/dL (7-18); CO2 28.7 mmol/L (21.0-32.0); CREATININE 0.8 mg/dL (0.70-1.30); Calcium 8.8 mg/dL (8.5-10.1); Chloride 103 mmol/L (98-107); Glucose 187 mg/dL (74-106); Sodium 140 mmol/L (136-145)
[2022-03-30 17:47] LABS: Hemoglobin A1C 6.6 % (<5.7)
[2022-04-03 16:05] LABS: Apolipoprotein B, Serum 53 mg/dL; Beta VLDL Cholesterol Not Detected mg/dL (<15); Beta VLDL Triglycerides Not Detected mg/dL (<15); Cholesterol, Total, CDC 91 mg/dL; Chylomicron Cholesterol Not Detected; Chylomicron Triglycerides Not Detected; HDL Cholesterol, CDC 21 mg/dL (>=40); LDL Cholesterol 47 mg/dL; LDL Triglycerides 47 mg/dL (<=50); Lp(a) Cholesterol <5 mg/dL (<5); LpX Not detected; Triglycerides, CDC 209 mg/dL; VLDL Cholesterol 23 mg/dL (<30); VLDL Triglycerides 143 mg/dL (<120)
== END 2022-03-30 16:11 | disposition home or self-care (01) ==
LOC: LBN 16:10
PROVIDERS: PCP Nurse Practitioner Primary Care; Visit Provider Internal Medicine
DX: J44.9 Chronic obstructive pulmonary disease, unspecified (principal); Z79.01 Long term (current) use of anticoagulants; I10 Essential (primary) hypertension; E66.9 Obesity, unspecified
CPT/HCPCS: 80051; 80061; 82947; 84520; 82172; 82310; 82565; 82664; 83036; 84450; 84460

== ENCOUNTER 2022-08-17 19:13 | Outpatient (REF) | payer OTHER, SELFPAY ==
[2022-08-17 19:18] LABS: HCT 45.6 % (40.0-50.0); HGB 14.6 g/dL (13.5-17.5); MCH 29.6 pg (27.0-33.0); MCV 93 fL (80-95); MPV 12.9 fL (8.0-11.0); Platelet Count 116 10^3/uL (130-400); RBC 4.93 10^6/uL (4.36-5.78); RDW 13.8 % (11.8-14.1); RDW-SD 47.1 fL; WBC 4.91 10^3/uL (4.4-10.8)
[2022-08-17 19:31] LABS: ALT 16 U/L (16-63); AST 16 U/L (15-37); Albumin 3.9 g/dL (3.4-5.0); Alkaline Phosphatase 84 U/L (46-116); Anion Gap 7.4 mmol/L (3-11); BUN 11 mg/dL (7-18); Bilirubin, Direct 0.2 mg/dL (0.0-0.2); Bilirubin, Total 0.5 mg/dL (0.2-1.0); CO2 30.6 mmol/L (21.0-32.0); CREATININE 0.8 mg/dL (0.70-1.30); Calcium 9.6 mg/dL (8.5-10.1); Chloride 102 mmol/L (98-107); Estimated GFR 97.61 (mL/min/1.73m2); Glucose 129 mg/dL (74-106); Potassium 4.5 mmol/L (3.5-5.1); Sodium 140 mmol/L (136-145); Total Protein 7.1 g/dL (6.4-8.2)
[2022-08-17 19:41] LABS: Hemoglobin A1C 6.1 % (<5.7)
[2022-08-17 20:09] LABS: Vitamin B12 312 pg/mL (193-986)
[2022-08-17 21:00] LABS: Vitamin D 25 Total 41.8 ng/mL (30-100)
[2022-08-20 10:57] LABS: Lipoprotein (a) 13 nmol/L (<75)
== END 2022-08-17 19:14 | disposition home or self-care (01) ==
LOC: LBN 19:13
PROVIDERS: PCP Nurse Practitioner Primary Care; Visit Provider Internal Medicine
DX: E11.9 Type 2 diabetes mellitus without complications (principal); J44.9 Chronic obstructive pulmonary disease, unspecified; I10 Essential (primary) hypertension
CPT/HCPCS: 80051; 80076; 82306; 82947; 83695; 84520; 85027; 82043; 82310; 82565; 82570; 82607; 83036

== ENCOUNTER 2022-10-12 14:38 | Emergency (ER) | payer OTHER, SELFPAY ==
[2022-10-12] VITALS (12 sets, daily range): BP systolic 102–143; BP diastolic 66–102; PULSE 62–101; RESP 16–24; TEMP 36.4–36.6; O2SAT 91–98
--- NOTE | 2022-10-12 16:15 | ED.GENADUL_ITS ---
Discharge Plan Disposition Patient Disposition: Home Condition: Stable Discharge Details Clinical Impression: Jaundice Primary Care Provider: Kristen Laniez ED Provider: Ag Menendez Home Meds and New Rx's Prescriptions: Continued atorvastatin [Lipitor] 10 MG tablet 10 mg PO HS bisacodyl 5 MG tablet,delayed release (DR/EC) 5 mg PO HS ibuprofen 600 MG tablet 600 mg PO QID metoprolol tartrate 12.5 MG tablet 12.5 mg PO BID nicotine 21 mg/24 hr Patch 24 Hour 1 patch TRANSDERMAL DAILY pregabalin [Lyrica] 200 mg Capsule 200 mg PO BID tamsulosin 0.4 mg Capsule 0.8 mg PO DAILY haloperidol decanoate 50 mg/mL solution 150 mg IM Q4W PRN Patient Comments: inject 100 MG EVERY 2 WEEKS calcifediol 30 mcg Capsule,Extended Release 24 Hr 25 mcg PO DAILY acetaminophen [Tylenol] 325 mg Tablet 650 mg PO Q4H PRN PRNQty: 0 0RF levofloxacin [Levaquin] 750 mg Tablet 750 mg PO QAM Qty: 2 0RF lisinopril 40 MG tablet 40 mg PO DAILY Qty: 0 0RF Discharge Instructions Additional Instructions: You have an elevated biliruin which is making your skin appear yellow. This is being caused by a likely pancreas cancer which is normally an aggressive cancer follow up with your primary care provider as soon as possible especially if you decide you want further testing and treatment for the likely cancer if you feel more ill, have severe worsening pain or fevers return to the emergency department Medical Decision Making 67 yo male with hx of bipolar and schizophrenia on chart review, pacemaker, hld, on home o2 who comes in with 2 weeks of worsening jaundice that is new for him. He denies chest pain, dyspnea, n/v, has had intermittent abdominal pain. He denies alcohol use, quit drinking 5 years ago after chronic alcohol use. He arrives stable and is visible jaundiced. He does have some asterixis when his arms are outstretched. HE is caox4. HE has mild abdominal tenderness periumbilically no guarding or rebound. Concern for cirrhosis vs pancreatic mass, will obtain cbc, cmp, lipase, bilirubin and ct abdomen/pelvis to further evaluate along with ammonia level labs remarkable for mild elevation in lft's, bilirubin is 13. CT shows likely proximal pancreatic or ampulary mass with evidence of mets. Patient is stable and feels well requesting d/c. I discussed the findings with the patient and serious pathology he has and he voiced understanding of this. He understands he likely has pancreatic cancer and is normally an aggressive cancer. After discussing with the patient he has no desire to be hospitalized at this time and has decision making capacity, caox4 with no evidence of intoxication. He is not sure he wants to pursue any treatment for the likely cancer. He wishes to discuss further with his pcp at the [place]. HE understands importance of follow up with his pcp and return precautions given Differential Diagnosis Differential Diagnosis: cirrhosis, pancreatic cancer, jaundice Medical Records Medical records reviewed: Yes I reviewed the patient's medical records. Imaging Data Radiologic Study: Attestation: I personally reviewed and interpreted this imaging study as follows: Imaging: CT Scan Radiologist's impression: IMPRESSION: 1. Findings most concerning for proximal pancreatic or ampullary mass causing moderate biliary obstruction and pancreatic ductal dilation and atrophy. Further details as above. Lab Data Lab results reviewed: Yes I reviewed the patient's lab results. HPI General Mode of arrival: EMS . Date/Time Provider Initiated Documentation: 10/12/22 15:44 . Limitations to Documentation: no limitations . Information obtained by: patient . History of Present Illness 67 year old M presents to the emergency department with the chief complaint of jaundice, de scribed as moderate, Patient started experiencing this week(s) (2) and it has been constant. No relieving factors improve symptom(s), No exacerbating factors reported . Patient notes denies chest pain and fever/chills. Patient did receive the following treatments prior to arrival, none Related Data Home Medications Medication Instructions Recorded Confirmed atorvastatin 10 mg tablet (Lipitor) 10 mg PO HS 09/21/17 03/26/20 bisacodyl 5 mg tablet,delayed 5 mg PO HS 09/21/17 03/26/20 release ibuprofen 600 mg tablet 600 mg PO QID 09/21/17 03/26/20 metoprolol tartrate 25 mg tablet 12.5 mg PO BID 09/21/17 03/26/20 nicotine 21 mg/24 hr daily 1 patch transdermal DAILY 03/20/20 03/26/20 transdermal patch calcifediol 30 mcg capsule,24 25 mcg PO DAILY 03/26/20 03/26/20 hr,extended release haloperidol decanoate 50 mg/mL 150 mg IM Q4W PRN 03/26/20 03/26/20 intramuscular solution pregabalin 200 mg capsule (Lyrica) 200 mg PO BID 03/26/20 03/26/20 tamsulosin 0.4 mg capsule 0.8 mg PO DAILY 03/26/20 03/26/20 acetaminophen 325 mg tablet 650 mg PO Q4H PRN PRN #0 tabs 03/29/20 (Tylenol) levofloxacin 750 mg tablet 750 mg PO QAM #2 tabs 03/29/20 (Levaquin) lisinopril 40 mg tablet 40 mg PO DAILY #0 tabs 03/29/20 03/26/20 Previous Rx's Medication Instructions Recorded acetaminophen 325 mg tablet 650 mg PO Q4H PRN PRN #0 tabs 03/29/20 (Tylenol) levofloxacin 750 mg tablet 750 mg PO QAM #2 tabs 03/29/20 (Levaquin) lisinopril 40 mg tablet 40 mg PO DAILY #0 tabs 03/29/20 Allergies Allergy/AdvReac Type Severity Reaction Status Date / Time cefepime Allergy Mild Urticaria Verified 10/12/22 14:44 ceftriaxone Allergy Mild urticaria Verified 10/12/22 14:44 codeine Allergy Itching Unverified 10/12/22 14:44 tramadol HCl [From [facility]] AdvReac Severe Agitation Unverified 10/12/22 14:44 General Stated Complaint: Abd Prob RYLAN: 3 Review of Systems All systems reviewed & are unremarkable except as noted in HPI and below Constitutional Constitutional: Denies chills and Denies fever(s) Cardiovascular Cardiovascular: Denies chest pain and Denies dyspnea Respiratory Respiratory: Denies cough and Denies dyspnea Gastrointestinal Gastrointestinal: Denies nausea and Denies vomiting Genitourinary Genitourinary: Denies dysuria Musculoskeletal Musculoskeletal: Denies joint swelling PFSH All Active Problems (Updated 10/12/22 @ 19:19 by Ag Menendez MD) Jaundice (Acute) Pneumonitis (Acute) UTI (urinary tract infection) (Acute) Bipolar 1 disorder (Chronic) Schizophrenia (Chronic) Hypomagnesemia (Acute) Slurred speech (Acute) Pacemaker (Acute) Abdominal pain (Acute) Shortness of breath (Acute) Abnormal abdominal CT scan (Acute) Medical History (Updated 10/12/22 @ 19:19 by gA Menendez MD) Near syncope Social History Smoking/Tobacco Use Status: Current-Occasional Smoking risk assessment performed?: Yes Alcohol Intake: former Drug use: Daily Substance use type: marijuana Do you feel safe at home: Yes Do you feel safe in your relationship?: Yes Exam Const General: no acute distress Orientation: alert HENMT Head: normal to inspection Ears: external ears normal General nose exam: external nose normal Mouth: moist mucous membranes Eyes General: appearance normal, both eyes and all related structures Neck Neck: normal visual inspection Resp Effort & Inspection: normal respiratory effort and able to speak in complete sentences Cardio Rate: regular rate GI Palpation: soft and tender Neuro General: patient alert and patient oriented x3 Extrem General: normal to inspection Course Vital Signs Vital signs: Vital Signs Temperature 36.4 C 10/12/22 14:43 Pulse 101 H 10/12/22 14:43 Respiratory Rate 18 10/12/22 14:43 Blood Pressure 143/102 H 10/12/22 14:43 Pulse Oximetry 98 10/12/22 14:43 Temperature 36.4 C 10/12/22 14:43 Temperature Source Oral 10/12/22 14:43 Pulse 101 H 10/12/22 14:43 Respiratory Rate 18 10/12/22 14:43 Respiratory Effort Normal, Non-Labored 10/12/22 14:43 Blood Pressure 143/102 H 10/12/22 14:43 Pulse Oximetry 98 10/12/22 14:43 Oxygen Delivery Method Room Air 10/12/22 14:43 Oxygen Flow Rate 0 10/12/22 14:43
[2022-10-12 16:19] LABS: Source Nasal/Nares
[2022-10-12 16:25] LABS: Abs Immature Grans 0.06 10^3/uL (0.0-0.06); Absolute Basophil Count 0.04 10^3/uL (0.0-0.2); Absolute Eosinophil Count 0.03 10^3/uL (0.0-0.7); Absolute Monocyte Count 0.91 10^3/uL (0.1-0.8); Absolute Neutrophil Count 5.68 10^3/uL (1.2-6.7); Basophils % 0.5; Eosinophils % 0.4; HCT 40.1 % (40.0-50.0); HGB 13.6 g/dL (13.5-17.5); Immature Grans % 0.8; Lymphocytes % 14.1; MCH 29.1 pg (27.0-33.0); MCHC 33.9 % (32.0-36.0); MCV 86 fL (80-95); Monocytes % 11.6; Neutrophils % 72.6; Platelet Count 106 10^3/uL (130-400); RBC 4.68 10^6/uL (4.36-5.78); RDW 17.6 % (11.8-14.1); RDW-SD 54.2 fL; WBC 7.82 10^3/uL (4.4-10.8)
[2022-10-12 16:26] LABS: Bilirubin Large (Negative); Blood Negative (Negative); Clarity Clear (Clear); Glucose 100 mg/dL (Negative); Ketones Negative (Negative); Leukocyte Esterase Negative (Negative); Nitrite Negative (Negative); Specific Gravity 1.015 (1.005-1.025); Urobilinogen 0.2 mg/dL (Up to 0.2)
[2022-10-12 16:38] LABS: Bacteria Negative HPF (Negative); C & S Indicated? No; Casts Negative LPF (Negative); Crystals Negative HPF (Negative); Epithelial Cells Rare HPF (Negative); Mucus Trace (Negative); RBC 0-2 HPF (0-2); WBC 0-2 HPF (0-5)
[2022-10-12 16:40] LABS: Acetaminophen < 2 ug/mL (10-30)
[2022-10-12 16:41] LABS: Ammonia 32 umol/L (11-32)
[2022-10-12 16:50] LABS: ALT 162 U/L (16-63); AST 205 U/L (15-37); Albumin 2.9 g/dL (3.4-5.0); Alkaline Phosphatase 680 U/L (46-116); Anion Gap 6.3 mmol/L (3-11); BUN 13 mg/dL (7-18); Bilirubin, Direct 13.1 mg/dL (0.0-0.2); CO2 32.7 mmol/L (21.0-32.0); CREATININE 0.6 mg/dL (0.70-1.30); Calcium 9.3 mg/dL (8.5-10.1); Chloride 98 mmol/L (98-107); Estimated GFR 106.46 (mL/min/1.73m2); Glucose 89 mg/dL (74-106); Lipase 344 U/L (16-77); Magnesium 1.4 mg/dL (1.8-2.4); Potassium 4.2 mmol/L (3.5-5.1); Sodium 137 mmol/L (136-145); TSH (W/Ref FT4) 0.73 uIU/mL (0.36-3.74); Total Protein 6.7 g/dL (6.4-8.2)
[2022-10-12 16:51] LABS: Bilirubin, Total 16.4 mg/dL (0.2-1.0); ETHANOL BLOOD < 3.0 mg/dL (<10)
[2022-10-12 16:52] LABS: COVID-19 PCR Negative (Negative)
[2022-10-12 16:55] LABS: INR 1.4 (0.9-1.1); PTT Activated 31.5 sec (21.5-31.9); Prothrombin Time 13.8 sec (9.3-11.0)
--- NOTE | 2022-10-12 17:00 | DI.CT_ITS ---
Exam(s) CT ABDOMEN PELVIS W EXAM: CT ABDOMEN PELVIS W CLINICAL HISTORY: jaundice, abdominal pain TECHNIQUE: Imaging Protocol: Axial computed tomography images with coronal and sagittal reformatted images were created and reviewed CONTRAST MATERIAL: Intravenous: Omnipaque 350 Contrast volume:100 mL Oral: No COMPARISON: CT CHEST ABD PELVIS WITH CONTRAST from 06/03/[address] BRAIN NECK CTA from 03/26/2020 FINDINGS: ABDOMEN: Lung Bases: There is elevation of the right hemidiaphragm. There are areas of consolidation in the r ight middle lobe and the right lower lobe. There is a 1 cm area of nodularity in the periphery of th e medial left lower lobe. The distal pacing wires are in place. Liver: Normal density. No measurable mass. Periportal edema is present. Intrahepatic biliary ductal d ilatation. Portal, Superior Mesenteric, and Splenic Veins: Unremarkable. Gallbladder and Biliary Tract: No calculi are seen. The gallbladder is distended measuring 4.3 cm in diameter. There is intra and extrahepatic biliary ductal dilatation. The common duct measures up t o 1.7 cm. Pancreas: There is atrophy of the body and tail of the pancreas with dilatation of the pancreatic og t. There is a 2.3 x 2.4 cm cystic lesion in the tail of the pancreas. There is soft tissue seen mohit cent to the tail of the pancreas measuring approximately 2.7 cm. Spleen: Normal. Adrenals: No masses seen. Kidneys: Normal size, contour and axis. No radiodense stones or obstructive uropathy. There are bilat eral simple renal cysts. The largest is seen in the left kidney and measures 1.3 cm. No follow-up is recommended. Abdominal Aorta: Abdominal portion non-dilated. Atherosclerosis is present. Bowel: There is diverticulosis seen in the colon, but no evidence of acute diverticulitis. There is n o evidence of appendicitis. No evidence of bowel obstruction is seen. No significant bowel wall thick ening is present. Peritoneal Cavity: No ascites, collection or mesenteric inflammatory response. No free air. Lymph Nodes: There are small nodules associated with the upper abdomen suspicious for in the lymph no harry. Bones: Within normal limits for the patient's age. There is an old nonunited left rib fracture. No a ggressive lytic lesions are seen. There is a left convex curvature of the thoracic and lumbar spine. Soft Tissues: Unremarkable. PELVIS: Bladder: Symmetric distention, no gross wall thickening. Reproductive Organs: Unremarkable as visualized. Lymph Nodes: Within normal limits. Bones: Within normal limits for the patient's age. IMPRESSION: 1. New intra and extrahepatic biliary ductal dilatation and atrophy of the tail and body of the pancr eas. There is dilatation of the pancreatic duct. The findings are suspicious for proximal pancreatic or ampullary mass/neoplasm. 2. Soft tissue nodules in the upper abdomen and near the tail of the pancreas suspicious for adenopat hy. A pancreatic tail mass cannot be excluded. 3. Right basilar infiltrates which may represent atelectasis or infection. Please correlate clinicall y. RADIATION DOSE DELIVERED: 1,313.48mGy.cm Total DLP DATA REPOSITORY: All CT scans at this facility are submitted to the National Radiology Data Registry (NRDR) Dose Index Registry (DIR) with the [employer] (A[employer]). RADIATION OPTIMIZATION: All CT scans at this facility use at least one of these dose optimization te chniques: automated exposure control; mA and/or kV adjustment per patient size (includes targeted exa ms where dose is matched to clinical indication); or iterative reconstruction.
[2022-10-12] MEDS: MAGNESIUM SULFATE 2 GM/50 ML BAG IVPB (17:20)
[2022-10-12] MEDS: Normal Saline Flush 10 ML SYR IVP (18:33)
[2022-10-12] MEDS: Omnipaque 350 MG/ML 100 ML BTL IJ (18:33)
[2022-10-12] MEDS: Normal Saline - Diluent 50 ML VIAL IJ (18:33)
--- NOTE | 2022-10-12 19:07 | DI.VRAD_ITS ---
PROCEDURE INFORMATION: Exam: CT Abdomen And Pelvis With Contrast Exam date and time: 10/12/2022 18:41 Age: 67 years old Clinical indication: Abdominal pain; Generalized; Additional info: Jaundice, abdominal pain TECHNIQUE: Imaging protocol: Computed tomography of the abdomen and pelvis with contrast. Radiation optimization: All CT scans at this facility use at least one of these dose optimization techniques: automated exposure control; mA and/or kV adjustment per patient size (includes targeted exams where dose is matched to clinical indication); or iterative reconstruction. Contrast material: OMNI 350; Contrast volume: 100 ml; Contrast route: INTRAVENOUS (IV); COMPARISON: CR XR CHEST 1V IN DI DEPT 03/26/2020 10:49 FINDINGS: Tubes, catheters and devices: Cardiac pacemaker leads are partially seen. Lungs: Moderate right basilar opacities favor compressive atelectasis over pneumonia please correlate with the clinical picture. Heart: Moderate cardiomegaly. Diaphragm: Elevated right hemidiaphragm. Liver: No hepatic masses. Moderate ductal dilation in the liver. Gallbladder and bile ducts: Distended gallbladder without calcified stones or wall thickening. Moderate biliary dilation, CBD 19 mm, abrupt transition distally. Pancreas: Atrophy of the pancreas at the body and tail, ductal dilation. Nodular lesions adjacent to the pancreatic head are most likely metastatic lymph nodes. A focal pancreatic or ampullary mass cannot be seen. Cystic structure of the pancreatic tail, unclear if this is secondary to chronic ductal obstruction and or secondary malignancy location or metastasis. Pre and post-contrast MRI of the abdomen with MRCP would be helpful for workup Spleen: No splenomegaly or focal lesions. Adrenal glands: No mass. Kidneys and ureters: Benign-appearing renal cysts and probable cysts. Stomach and bowel: Mild wall thickening of the sigmoid colon favor due to chronic diverticular disease. No acute appearing diverticulitis. No focal pathology in the small bowel. Appendix: No evidence of appendicitis. Intraperitoneal space: No free air. No significant fluid collection. Vasculature: Minor dilation of the infrarenal aorta. Lymph nodes: Suspected gastrohepatic adenopathy. Urinary bladder: Unremarkable as visualized. Reproductive: Unremarkable as visualized. Bones/joints: Chronic bony changes with no acute fracture. Soft tissues: No suspicious lesions. IMPRESSION: 1. Findings most concerning for proximal pancreatic or ampullary mass causing moderate biliary obstruction and pancreatic ductal dilation and atrophy. Further details as above. 2. Additional findings as described. Dictated and Authenticated by: Ro Mendoza MD. Ordering:KATHLEEN Luong MD
== END 2022-10-12 20:00 | disposition home or self-care (01) ==
PROVIDERS: Emergency Provider Emergency Medicine; PCP Nurse Practitioner Primary Care
DX: R17 Unspecified jaundice (principal); R27.8 Other lack of coordination; R10.815 Periumbilic abdominal tenderness; R79.89 Other specified abnormal findings of blood chemistry; Z20.822 Contact with and (suspected) exposure to COVID-19
CPT/HCPCS: 36415; 80053; 83690; 87635; 96360; 96361; 99285; 74177; 80320; 80329; 81003; 81015; 82140; 82248; 83735; 84443; 85025; 85610; 85730; 99284; J3490